=== PATIENT | female | born 1980 | race Caucasian/White ===

== ENCOUNTER 2020-08-06 09:10 | Outpatient (REF) | payer OTHER, SELFPAY ==
--- NOTE | 2020-08-06 09:15 | XR_ITS ---
EXAMINATION: XR SHOULDER, LEFT CLINICAL INFORMATION: Pain COMPARISON: None TECHNIQUE: AP external rotation, Grashey, scapular Y, and axillary views of the left shoulder. FINDINGS: Bone alignment is normal. No fracture or dislocation is seen. The joint spaces are normal. There is a small soft tissue calcification seen posteriorly on the axillary view. This is not identified on other views. IMPRESSION: No fracture or dislocation.
== END 2020-08-06 09:11 | disposition home or self-care (01) ==
LOC: HO.HMGCX 09:10
PROVIDERS: PCP Internal Medicine; Visit Provider Internal Medicine
DX: M25.512 Pain in left shoulder (principal)
CPT/HCPCS: 73030

== ENCOUNTER 2020-11-12 10:50 | Outpatient (REF) | payer OTHER, SELFPAY | END 2020-11-12 10:51 | disposition home or self-care (01) | LOC: HO.LAB 10:50 | PROVIDERS: Visit Provider Nurse Practitioner Family | DX: H65.192 Other acute nonsuppurative otitis media, left ear (principal); Z20.822 Contact with and (suspected) exposure to COVID-19 | CPT/HCPCS: 36415; U0003 ==

== ENCOUNTER 2020-11-12 11:01 | Outpatient (REF) | payer OTHER, SELFPAY ==
--- NOTE | 2020-11-12 11:09 | XR_ITS ---
EXAMINATION: LEFT SHOULDER AND LEFT FOOT X-RAYS CLINICAL INFORMATION: Pain COMPARISON: None TECHNIQUE: 3 views of the left shoulder and 3 views of the left foot FINDINGS: Left shoulder: Bone alignment is normal. No fracture or dislocation is seen. The joint spaces are normal. Soft tissues are normal. Left foot: Bone alignment is normal. No fracture or dislocation is seen. The joint spaces are normal. There are small calcaneal spurs. XR/XR foot LT min 3V IMPRESSION: Left shoulder: Unremarkable exam Left foot: Calcaneal spurs.
--- NOTE | 2020-11-12 11:09 | XR_ITS ---
EXAMINATION: LEFT SHOULDER AND LEFT FOOT X-RAYS CLINICAL INFORMATION: Pain COMPARISON: None TECHNIQUE: 3 views of the left shoulder and 3 views of the left foot FINDINGS: Left shoulder: Bone alignment is normal. No fracture or dislocation is seen. The joint spaces are normal. Soft tissues are normal. Left foot: Bone alignment is normal. No fracture or dislocation is seen. The joint spaces are normal. There are small calcaneal spurs. XR/XR shoulder LT min 2V IMPRESSION: Left shoulder: Unremarkable exam Left foot: Calcaneal spurs.
== END 2020-11-12 11:02 | disposition home or self-care (01) ==
LOC: HO.HMGCX 11:01
PROVIDERS: PCP Internal Medicine; Visit Provider Nurse Practitioner Family
DX: M79.672 Pain in left foot (principal); M25.512 Pain in left shoulder; G89.29 Other chronic pain
CPT/HCPCS: 73030; 73630

== ENCOUNTER 2020-11-21 10:13 | Outpatient (REF) | payer OTHER, SELFPAY ==
[2020-11-21 11:12] LABS: MANUAL DIFF FLAG NO
[2020-11-21 11:24] LABS: Basophils Percent Auto 0.4 % (0-2); Eosinophils Absolute Auto 0.1 X10*3/uL (0.0-0.4); Eosinophils Percent Auto 1.6 % (0-4); Hematocrit 43.2 % (37-47); Hemoglobin 14.4 g/dl (12.0-16.0); Imm Gran Abs Auto 0.05 X10*3/uL (0.00-0.03); Imm Gran Pct Auto 0.7 % (0.0-0.4); Lymphocytes Absolute Auto 1.9 X10*3/uL (1.2-4.9); Lymphocytes Percent Auto 25.7 % (20-40); Mean Corpuscular HGB Conc 33.3 g/dl (31.0-35.0); Mean Corpuscular Hemoglobin 28.3 pg (27.0-33.0); Mean Platelet Volume 11.5 fL (9.4-12.3); Monocytes Absolute Auto 0.5 X10*3/uL (0.1-1.2); Monocytes Percent Auto 6.9 % (2-11); Neutrophils Absolute Auto 4.7 X10*3/uL (2.0-8.3); Neutrophils Percent Auto 64.7 % (45-73); Platelet Count 199 X10*3/uL (160-400); Red Blood Count 5.08 X10*6/uL (4.20-5.50); Red Cell Distribution Width 12.6 % (11.0-16.0); White Blood Count 7.3 X10*3/uL (4.8-10.8)
[2020-11-21 11:52] LABS: Alanine Aminotransferase 10 U/L (0-31); Albumin Level 4.5 g/dL (3.5-5.0); Alkaline Phosphatase 69 U/L (39-117); Anion Gap 11 (12-20); Aspartate Amino Transferase 11 U/L (5-31); Bilirubin Total 0.9 mg/dL (0.0-1.0); Blood Urea Nitrogen 10 mg/dL (9-16); Calcium 8.9 mg/dL (8.4-10.2); Carbon Dioxide 27 mmol/L (22-29); Chloride 104 mmol/L (96-108); Cholesterol 129 mg/dL; Estimated Glomerular Filt Rate > 60; Glucose Fasting 87 mg/dL (60-99); HDL Cholesterol 51 mg/dL; LDL Cholesterol Calculated 70 mg/dl; Potassium 4.3 mmol/L (3.3-5.1); Sodium 138 mmol/L (135-145); Total Protein 6.6 g/dL (6.5-8.0); Triglycerides 44 mg/dL
[2020-11-21 12:14] LABS: TSH reflex Free T4 0.71 uIU/mL (0.32-4.0); Vitamin D 25-OH Total 22.3 ng/mL (>30)
[2020-11-22 06:28] LABS: Thyroid Peroxidase Antibodies 493 IU/mL (<9)
== END 2020-11-21 10:14 | disposition home or self-care (01) ==
LOC: HO.HMGCLDS 10:13
PROVIDERS: PCP Internal Medicine; Visit Provider Internal Medicine
DX: Z00.01 Encounter for general adult medical examination with abnormal findings (principal); E66.9 Obesity, unspecified; F41.9 Anxiety disorder, unspecified; Z83.49 Family history of other endocrine, nutritional and metabolic diseases
CPT/HCPCS: 36415; 80053; 80061; 82306; 84443; 85025; 86376

== ENCOUNTER 2021-01-30 09:30 | Outpatient (REF) | payer OTHER, SELFPAY ==
[2021-01-30 15:22] LABS: CT PCR NOT DETECTED (Not Detect.); NG PCR NOT DETECTED (Not Detect.)
[2021-02-01 20:52] LABS: HPV mRNA E6/E7 rflx Not Detected (Not Detected)
== END 2021-01-30 09:31 | disposition home or self-care (01) ==
LOC: HO.LAB 09:30
PROVIDERS: PCP Internal Medicine; Visit Provider Advanced Practice Midwife
DX: Z01.419 Encounter for gynecological examination (general) (routine) without abnormal findings (principal); Z11.51 Encounter for screening for human papillomavirus (HPV); Z11.3 Encounter for screening for infections with a predominantly sexual mode of transmission; Z20.2 Contact with and (suspected) exposure to infections with a predominantly sexual mode of transmission; R23.2 Flushing; Z80.3 Family history of malignant neoplasm of breast
CPT/HCPCS: 87491; 87591; 87624; 88142

== ENCOUNTER 2021-02-01 08:45 | Outpatient (REF) | payer OTHER, SELFPAY ==
--- NOTE | ~2021-02-01 | MM_ITS ---
EXAMINATION: MM SCREENING DIGITAL BREAST TOMOSYNTHESIS, BILATERAL CLINICAL INFORMATION: Screening. Asymptomatic. The lifetime risk of breast cancer based on the Tyrer-Cuzick Model is 18%. COMPARISON: Outside mammography: 12/09/2019, 11/30/2018 ([facility]) TECHNIQUE: Digital breast tomosynthesis is performed in both the craniocaudal and mediolateral oblique views along with computer-aided detection (CAD). Synthesized 2D images are generated from the tomosynthesis. FINDINGS: The breasts are heterogeneously dense, which may obscure small masses (ACR BI-RADS breast composition Category c). Breast tissue composition borders on average fibroglandular. Parenchymal pattern is similar to the outside exams. There is no developing density or interval mass or architectural abnormality. Left breast shows no abnormal calcifications. There is probable punctate digital processing artifact mid lower right breast on MLO view is rather than calcifications. No correlate on CC view. Patient will be recalled for additional imaging to confirm. The axilla and skin contours are unremarkable. MM/MM tomosynthesis screening BI IMPRESSION: 1. Right: Calcifications versus punctate digital processing artifact mid lower right breast on MLO view. 2. Left: No mammographic evidence of malignancy. ASSESSMENT: BI-RADS 0: Incomplete - Need Additional Imaging Evaluation RECOMMENDATION: 2. Radiology department staff will contact the patient for additional imaging. This patient's information was entered into a reminder system with a target due date for their next mammogram.
== END 2021-02-01 08:46 | disposition home or self-care (01) ==
LOC: HO.MAMMO 08:45
PROVIDERS: PCP Internal Medicine; Visit Provider Internal Medicine
DX: Z12.31 Encounter for screening mammogram for malignant neoplasm of breast (principal); M75.42 Impingement syndrome of left shoulder
CPT/HCPCS: 77063; 77067; 99202

== ENCOUNTER 2021-02-22 09:12 | Outpatient (REF) | payer OTHER, SELFPAY ==
--- NOTE | ~2021-02-22 | US_ITS ---
EXAMINATION: US ABDOMEN LIMITED CLINICAL INFORMATION: Left upper quadrant abdominal swelling, mass, lump. COMPARISON: CT abdomen and pelvis 07/14/2018. TECHNIQUE: Real-time imaging of the left upper quadrant abdominal wall inferior rib cage using a linear transducer. FINDINGS: No hernia is seen. No solid or cystic mass or fluid collection is seen. US/US abdomen limited IMPRESSION: No left upper quadrant abdominal wall abnormality evident by ultrasound
== END 2021-02-22 09:13 | disposition home or self-care (01) ==
LOC: HO.HMGCX 09:12
PROVIDERS: PCP Internal Medicine; Visit Provider Internal Medicine
DX: R19.02 Left upper quadrant abdominal swelling, mass and lump (principal)
CPT/HCPCS: 76705

== ENCOUNTER 2021-02-25 11:11 | Outpatient (REF) | payer OTHER, SELFPAY ==
--- NOTE | ~2021-02-25 | MM_ITS ---
EXAMINATION: MM DIAGNOSTIC DIGITAL MAMMOGRAPHY, RIGHT CLINICAL INFORMATION: Calcifications versus digital processing artifact mid lower right breast on synthesized MLO screening view. COMPARISON: Mammography: 02/01/2021; outside mammography 12/09/2019, 11/30/2018 ([facility]). TECHNIQUE: Digital mammography is performed in the following views: Magnification ML FINDINGS: There are scattered areas of fibroglandular density (ACR BI-RADS breast composition Category b). There is a single punctate round calcification in the mid to lower breast, area of interest. There is a small round dermal calcification right areolar. There are no grouped calcifications or ductal distribution. Results are discussed with the patient at time of visit. MM/MM added views RT IMPRESSION: No grouped calcifications mid to lower right breast. ASSESSMENT: BI-RADS 2: Benign RECOMMENDATION: Routine annual mammography screening. This patient's information was entered into a reminder system with a target due date for their next mammogram.
== END 2021-02-25 11:12 | disposition home or self-care (01) ==
LOC: HO.MAMMO 11:11
PROVIDERS: Visit Provider Internal Medicine
DX: R92.1 Mammographic calcification found on diagnostic imaging of breast (principal)
CPT/HCPCS: 77065

== ENCOUNTER 2021-03-27 10:38 | Outpatient (REF) | payer OTHER, SELFPAY | END 2021-03-27 10:39 | disposition home or self-care (01) | LOC: HO.LAB 10:38 | PROVIDERS: Visit Provider Nurse Practitioner Family | DX: N39.0 Urinary tract infection, site not specified (principal) | CPT/HCPCS: 87086; 87088; 87186 ==

== ENCOUNTER 2021-05-20 13:30 | Outpatient (REF) | payer OTHER, SELFPAY ==
--- NOTE | ~2021-05-20 | XR_ITS ---
EXAMINATION: XR FOOT, RIGHT CLINICAL INFORMATION: Pain right. COMPARISON: None TECHNIQUE: AP, lateral, and oblique views of the right foot. FINDINGS: There is no acute or healing fracture, dislocation, destructive process. There is normal bony mineralization. No focal joint narrowing or erosive changes. There are small posterior and plantar calcaneal spurs. The retrocalcaneal recess is preserved. Subtalar joint is unremarkable. XR/XR foot RT min 3V IMPRESSION: 1. No visible fracture or arthropathy. 2. Small posterior and plantar calcaneal spurs.
[2021-05-27 13:15] LABS: Vitamin D 25-OH, D2 <4 ng/mL; Vitamin D 25-OH, D3 34 ng/mL; Vitamin D 25-OH, Total 34 ng/mL (30-100)
== END 2021-05-20 13:31 | disposition home or self-care (01) ==
LOC: HO.HMGCX 13:30
PROVIDERS: PCP Internal Medicine; Visit Provider Hospitalist
DX: M79.671 Pain in right foot (principal); R30.0 Dysuria; E55.9 Vitamin D deficiency, unspecified
CPT/HCPCS: 36415; 73630; 82306; 87086; 87088; 87186

== ENCOUNTER 2021-10-16 14:06 | Outpatient (REF) | payer OTHER, SELFPAY ==
[2021-10-17 03:21] LABS: CT PCR NOT DETECTED (Not Detect.); NG PCR NOT DETECTED (Not Detect.)
[2021-10-17 09:43] LABS: BV Int Neg Control Negative (Negative); BV Int Pos Control Positive (Positive)
== END 2021-10-16 14:07 | disposition home or self-care (01) ==
LOC: HO.LAB 14:06
PROVIDERS: PCP Internal Medicine; Visit Provider Advanced Practice Midwife
DX: Z01.411 Encounter for gynecological examination (general) (routine) with abnormal findings (principal); B37.3 Candidiasis of vulva and vagina; Z20.2 Contact with and (suspected) exposure to infections with a predominantly sexual mode of transmission
CPT/HCPCS: 87480; 87491; 87510; 87591; 87660; 99212

== ENCOUNTER 2021-10-22 10:44 | Outpatient (REF) | payer OTHER, SELFPAY ==
[2021-10-22 14:02] LABS: Appearance Urine CLOUDY; Color Urine STRAW; Glucose Urine UA NEG (NEG); Leukocyte Esterase Urine 3+ (NEG); Nitrite Urine NEG (NEG); Specific Gravity - Urine <= 1.005 (1.005-1.025); UACC Culture Trigger YES; Urine Blood NEG (NEG); Urine Ketones NEG (NEG); Urine Protein NEG (NEG-TRACE)
[2021-10-22 14:08] LABS: Bacteria Urine 2+ /LPF; Squamous Epithelial Cell Urine 2+ /LPF
== END 2021-10-22 10:45 | disposition home or self-care (01) ==
LOC: HO.HMGCLDS 10:44
PROVIDERS: PCP Internal Medicine; Visit Provider Advanced Practice Midwife
DX: N39.0 Urinary tract infection, site not specified (principal)
CPT/HCPCS: 81001; 81003; 87086; 87088; 87186

== ENCOUNTER 2021-12-30 09:00 | Outpatient (REF) | payer OTHER, SELFPAY ==
[2021-12-30 11:28] LABS: Appearance Urine CLEAR; Color Urine STRAW; Glucose Urine UA NEG (NEG); Leukocyte Esterase Urine NEG (NEG); Nitrite Urine NEG (NEG); UACC Culture Trigger NO; Urine Blood TRACE (NEG); Urine Ketones NEG (NEG); Urine Protein NEG (NEG-TRACE)
[2021-12-30 12:05] LABS: Bacteria Urine 1+ /LPF; Squamous Epithelial Cell Urine 3+ /LPF; WBC Urine 0-2 /HPF (0-4)
[2021-12-30 12:06] LABS: Anion Gap 10 (12-20); Blood Urea Nitrogen 9 mg/dL (9-16); Calcium 9.3 mg/dL (8.4-10.2); Carbon Dioxide 27 mmol/L (22-29); Chloride 105 mmol/L (96-108); Estimated Glomerular Filt Rate > 60; Glucose Random 77 mg/dL (60-115); Potassium 4.2 mmol/L (3.3-5.1); Sodium 138 mmol/L (135-145)
[2021-12-30 12:17] LABS: B Type Natriuretic Peptide 12 pg/mL (<100)
[2021-12-30 12:32] LABS: TSH reflex Free T4 1.06 uIU/mL (0.32-4.0)
[2021-12-30 12:40] LABS: Estimated Average Glucose 91 mg/dL; Hemoglobin A1c % 4.8 %
== END 2021-12-30 09:01 | disposition home or self-care (01) ==
LOC: HO.HMGCLDS 09:00
PROVIDERS: Physician Assistant; PCP Internal Medicine; Visit Provider Advanced Practice Midwife
DX: R63.5 Abnormal weight gain (principal); N39.0 Urinary tract infection, site not specified; R30.0 Dysuria; Z86.39 Personal history of other endocrine, nutritional and metabolic disease
CPT/HCPCS: 36415; 80048; 81001; 83036; 83880; 84443

== ENCOUNTER 2022-04-25 10:48 | Outpatient (REF) | payer OTHER, SELFPAY ==
[2022-04-25 12:00] LABS: MANUAL DIFF FLAG NO
[2022-04-25 12:06] LABS: Basophils Percent Auto 0.4 % (0-2); Eosinophils Absolute Auto 0.1 X10*3/uL (0.0-0.4); Eosinophils Percent Auto 1.4 % (0-4); Hemoglobin 14.4 g/dl (12.0-16.0); Imm Gran Pct Auto 1.3 % (0.0-0.4); Lymphocytes Absolute Auto 1.8 X10*3/uL (1.2-4.9); Lymphocytes Percent Auto 22.7 % (20-40); Mean Corpuscular HGB Conc 33.5 g/dl (31.0-35.0); Mean Corpuscular Hemoglobin 27.6 pg (27.0-33.0); Mean Corpuscular Volume 82.5 fL (80.0-98.0); Mean Platelet Volume 11.2 fL (9.4-12.3); Monocytes Absolute Auto 0.5 X10*3/uL (0.1-1.2); Monocytes Percent Auto 6.6 % (2-11); Neutrophils Absolute Auto 5.4 x10*3/uL (2.0-8.3); Neutrophils Percent Auto 67.6 % (45-73); Platelet Count 225 X10*3/uL (160-400); Red Blood Count 5.21 X10*6/uL (4.20-5.50); Red Cell Distribution Width 12.8 % (11.0-16.0)
[2022-04-25 12:07] LABS: Hematocrit 43.3 % (37.0-47.0); Hemoglobin 14.7 g/dl (12.0-16.0); Mean Corpuscular HGB Conc 33.9 g/dl (31.0-35.0); Mean Corpuscular Hemoglobin 28.2 pg (27.0-33.0); Mean Platelet Volume 11.2 fL (9.4-12.3); Platelet Count 228 X10*3/uL (160-400); Red Blood Count 5.22 X10*6/uL (4.20-5.50); Red Cell Distribution Width 12.7 % (11.0-16.0); White Blood Count 7.7 X10*3/uL (4.8-10.8)
[2022-04-25 12:14] LABS: Appearance Urine CLEAR; Color Urine STRAW; Glucose Urine UA NEG (NEG); Leukocyte Esterase Urine 1+ (NEG); Nitrite Urine NEG (NEG); Specific Gravity - Urine <= 1.005 (1.005-1.025); UACC Culture Trigger YES; Urine Blood NEG (NEG); Urine Ketones NEG (NEG); Urine Protein NEG (NEG-TRACE)
[2022-04-25 12:18] LABS: Alanine Aminotransferase 12 U/L (0-31); Anion Gap 10 (12-20); Aspartate Amino Transferase 12 U/L (5-31); Blood Urea Nitrogen 9 mg/dL (9-16); Carbon Dioxide 28 mmol/L (22-29); Chloride 104 mmol/L (96-108); Cholesterol 126 mg/dL; Estimated Glomerular Filt Rate > 60; Glucose Fasting 91 mg/dL (60-99); HDL Cholesterol 45 mg/dL; LDL Cholesterol Calculated 67 mg/dl; Potassium 4.4 mmol/L (3.3-5.1); Sodium 138 mmol/L (135-145); Triglycerides 73 mg/dL
[2022-04-25 12:41] LABS: Thyroid Stimulating Hormone 0.79 uIU/mL (0.32-4.0); Vitamin D 25-OH Total 28.3 ng/mL (>30)
[2022-04-25 12:56] LABS: Squamous Epithelial Cell Urine 1+ /LPF
[2022-04-25 12:58] LABS: Bacteria Urine TRACE /LPF; RBC Urine 0-2 /HPF (0)
[2022-04-30 15:12] LABS: Vitamin D 25-OH, D2 <4 ng/mL; Vitamin D 25-OH, D3 26 ng/mL; Vitamin D 25-OH, Total 26 ng/mL (30-100)
== END 2022-04-25 10:49 | disposition home or self-care (01) ==
LOC: HO.HMGCLDS 10:48
PROVIDERS: Absent Provider Internal Medicine; PCP Internal Medicine; Visit Provider Internal Medicine
DX: Z00.01 Encounter for general adult medical examination with abnormal findings (principal); E55.9 Vitamin D deficiency, unspecified; E06.3 Autoimmune thyroiditis
CPT/HCPCS: 36415; 80048; 80061; 81001; 81003; 82306; 84443; 84450; 84460; 85025; 85027; 87086; 87088

== ENCOUNTER 2022-06-27 11:04 | Outpatient (REF) | payer OTHER, SELFPAY ==
--- NOTE | ~2022-06-27 | MM_ITS ---
EXAMINATION: MM SCREENING DIGITAL BREAST TOMOSYNTHESIS, BILATERAL CLINICAL INFORMATION: Screening. Asymptomatic. The lifetime risk of breast cancer based on the Tyrer-Cuzick Model is 17%. COMPARISON: Mammography: 02/25/2021, 02/01/2021, 12/09/2019; outside mammography 11/30/2018 ([facility]). TECHNIQUE: Digital breast tomosynthesis is performed in both the craniocaudal and mediolateral oblique views along with computer-aided detection (CAD). Synthesized 2D images are generated from the tomosynthesis. FINDINGS: There are scattered areas of fibroglandular density (ACR BI-RADS breast composition Category b). There are no significant masses, abnormal calcifications, or other abnormalities. Parenchymal pattern is similar to prior studies. Breast tissue composition borders on heterogeneously dense. There is no developing density or architectural abnormality. The axilla and skin contours are unremarkable. No significant changes. MM/MM tomosynthesis screening BI IMPRESSION: No mammographic evidence of malignancy. ASSESSMENT: BI-RADS 1: Negative RECOMMENDATION: Routine annual mammography screening. This patient's information was entered into a reminder system with a target due date for their next mammogram.
== END 2022-06-27 11:05 | disposition home or self-care (01) ==
LOC: HO.MAMMO 11:04
PROVIDERS: PCP Internal Medicine; Visit Provider Internal Medicine
DX: Z12.31 Encounter for screening mammogram for malignant neoplasm of breast (principal)
CPT/HCPCS: 77063; 77067

== ENCOUNTER 2022-08-25 12:04 | Emergency (ER) | payer OTHER, SELFPAY ==
--- NOTE | ~2022-08-25 | CT_ITS ---
EXAMINATION: CT ABDOMEN AND PELVIS WITHOUT CONTRAST CLINICAL INFORMATION: Right-sided flank pain COMPARISON: None TECHNIQUE: Multidetector volumetric imaging was performed from the superior aspect of the liver through the pubic symphysis. Sagittal and coronal reformatted images were obtained on the technologist's workstation. This CT examination was performed using dose optimization techniques as appropriate, variously including the following: *Automated exposure control *Adjustment of mA and/or kV according to patient size (this includes techniques or standardized protocols for targeted exams where dose is matched to indication/reason for exam; i.e. extremities or head) *Use of iterative reconstruction technique DLP: 844 mGy-cm FINDINGS: LUNG BASES: The visualized lung bases are unremarkable. LIVER, GALLBLADDER, AND BILIARY TREE: Unenhanced liver grossly normal. No focal mass. No biliary dilatation. . Gallbladder is absent. PANCREAS: Unremarkable. SPLEEN: Unremarkable. ADRENAL GLANDS: Unremarkable. KIDNEYS AND URETERS: The kidneys are normal in size, shape, and attenuation. No hydronephrosis, hydroureter, or calculi seen. No perinephric stranding. BLADDER: Unremarkable. GASTROINTESTINAL TRACT: No bowel obstruction or right or left lower quadrant inflammatory change. Vermiform appendix not clearly seen but there is no inflammation in the right lower quadrant. ABDOMINAL WALL: No significant hernia is appreciated. LYMPH NODES: Normal. VASCULAR: Unremarkable. PELVIC VISCERA: Unremarkable. OSSEOUS STRUCTURES: Unremarkable. CT/CT abdomen pelvis wo IV con IMPRESSION: Unremarkable study.
[2022-08-25 12:31] VITALS: BP 128/84; PULSE 87; RESP 18; TEMP 36.5; O2SAT 98; BMI 35.4
--- NOTE | 2022-08-25 12:37 | ED.ABDPAIN ---
HPI - Abdominal Pain General Chief Complaint: Abdominal Pain <Luigi Daley MD - Last Filed: 08/25/22 12:37> Stated Complaint: r side abd pain back <Luigi Daley MD - Last Filed: 08/25/22 12:37> Time Seen by Provider: 08/25/22 18:45 <Luigi Daley MD - Last Filed: 08/25/22 12:37> Source: patient and family <ANTONIETA Collier - Last Filed: 08/25/22 19:44> Mode of arrival: ambulatory <ANTONIETA Collier - Last Filed: 08/25/22 19:44> Limitations: no limitations <ANTONIETA Collier Last Filed: 08/25/22 19:44> History of Present Illness HPI narrative: 42-year-old female with a past medical history of anxiety disorder, PTSD, gallstones and Toro's thyroiditis and PSHx of cholecystectomy presenting to the ER with complaints of mid to lower back pain right-sided that is radiating to her abdomen to the right lower quadrant since Thursday morning when she woke up. She reports that she went to the urgent care prior to arrival and they told her that she had blood in her urine and that they cannot rule out appendicitis therefore they sent her here for further evaluation treatment. She reports associated chills. She denies any measured fevers, headaches, nausea/vomiting, diarrhea constipation, black or bloody stools, dysuria, hematuria, recent travel or sick contacts, recent falls or trauma, recent heavy lifting, urinary bowel incontinence or retention or any other symptoms complaints or concerns at this time. <ANTONIETA Collier - Last Filed: 08/25/22 19:44> MD elicited complaint: other (back pain) <ANTONIETA Collier - Last Filed: 08/25/22 19:44> Pertinent past history: none <ANTONIETA Collier Last Filed: 08/25/22 19:44> Onset (ago): day(s) (2) <ANTONIETA Collier Last Filed: 08/25/22 19:44> Pain Consistency: constant <ANTONIETA Collier Last Filed: 08/25/22 19:44> Location: none (right mid back) <ANTONIETA Collier Last Filed: 08/25/22 19:44> Severity: mild <ANTONIETA Collier - Last Filed: 08/25/22 19:44> Quality: aching <ANTONIETA Collier - Last Filed: 08/25/22 19:44> Radiation: RLQ <ANTONIETA Collier - Last Filed: 08/25/22 19:44> Exacerbating factors: nothing <ANTONIETA Collier - Last Filed: 08/25/22 19:44> Relieving factors: nothing <ANTONIETA Collier - Last Filed: 08/25/22 19:44> Associated symptoms: chills <ANTONIETA Collier - Last Filed: 08/25/22 19:44> Related Data Home Medications: Home Medications Medication Instructions Recorded Confirmed aspirin 81 mg tablet,delayed 81 mg PO DAILY 11/21/20 10/16/21 release (Adult Low Dose Aspirin) Previous Rx's Medication Instructions Recorded lorazepam 0.5 mg tablet 0.5 mg PO DAILY PRN anxiety #10 07/25/21 tabs cyclobenzaprine 10 mg tablet 10 mg PO Q8H #14 tabs 08/25/22 naproxen 500 mg tablet 500 mg PO BID PRN pain #14 tabs 08/25/22 <Luigi Daley MD - Last Filed: 08/25/22 12:37> Allergies/Adverse Reactions: Allergies Allergy/AdvReac Type Severity Reaction Status Date / Time azithromycin [Azithromycin] Allergy Unknown RASH Verified 08/25/22 11:02 doxycycline [Doxycycline] Allergy Unknown RASH Verified 08/25/22 11:02 Iodinated Contrast Media Allergy Unknown HIVES Verified 08/25/22 11:02 [IV CONTRAST] sulfamethoxazole Allergy Unknown unknown Verified 08/25/22 11:02 Sulfamethoxazole Allergy Unknown rash Uncoded 08/25/22 11:02 <Luigi Daley MD - Last Filed: 08/25/22 12:37> Review of Systems Review of Systems Constitutional : + Chills, No trauma, No Weight loss, No Fever ENT/Mouth : No Hearing loss, No Ear Pain, No Nasal Congestion, No Sinus Pain, No Hoarseness, No sore throat, No Rhinorrhea, No Swallowing Difficulty Cardiovascular : No Chest Pain, No SOB Respiratory : No Cough, No Dyspnea Gastrointestinal : No Nausea, No Vomiting, No Diarrhea, + abdominal Pain, No Hematochezia, No Melena Genitourinary : No Dysuria, No Urinary Frequency, No Hematuria, No Urinary or Bowel Incontinence/retention Musculoskeletal : + Back pain, No neck pain, No joint stiffness, No joint swelling Skin : No Skin Lesions, No rash or signs of infection Neuro : No Weakness, No radiation, No Numbness, No Paresthesias, No headache, no loss of bowel or bladder incontinence, no saddle anesthesia, Focal weakness, No radiation Denies history of IV drug usage. <ANTONIETA Collier - Last Filed: 08/25/22 19:44> Yes all other systems are reviewed and are negative <ANTONIETA Collier - Last Filed: 08/25/22 19:44> [facility] Past Medical History Attestation statement: The following information was validated with the patient. <ANTONIETA Collier - Last Filed: 08/25/22 19:44> Source: old records reviewed, obtained from family and nursing notes reviewed <ANTONIETA Collier - Last Filed: 08/25/22 19:44> Medical History: Medical History Abdominal wall mass of left upper quadrant Anxiety disorder Breast asymmetry Cholelithiasis COVID-19 vaccine administered Family history of thyroid disorder Toro's thyroiditis Hx of abnormal cervical Pap smear Influenza vaccination declined PTSD (post-traumatic stress disorder) <Luigi Daley MD - Last Filed: 08/25/22 12:37> Surgical History: Surgical History History of laparoscopic cholecystectomy History of loop electrical excision procedure (LEEP) History of tonsillectomy <Luigi Daley MD - Last Filed: 08/25/22 12:37> Family History Family History: Family History Father Diabetes mellitus HTN (hypertension) CAD (coronary artery disease) CVD (cardiovascular disease) Asthma Myocardial infarction Mother Prediabetes Goiter Stroke Brother No problems noted. Daughter No problems noted. Daughter Mental health disorder Son No problems noted. Son No problems noted. Son No problems noted. Son No problems noted. Paternal Grandmother Breast cancer Ovarian cancer Maternal Grandmother Breast cancer Family/Other Colon cancer <Luigi Daley MD - Last Filed: 08/25/22 12:37> Social History Social History: Social History Housing: House Alcohol intake: never Patient Tobacco Use Status: Never used Tobacco e-Cigarette/Vaping Use: Never Used Advance Directives: No Advance Directives Information Provided: No service: No Current occupational status: employed Gender identity: Female Cognitive needs: No Hearing needs: No Vision needs: No <Luigi Daley MD - Last Filed: 08/25/22 12:37> Physical Exam ED Vital Signs: Vital Signs - 24 hr 08/25/22 12:31 Temperature 97.7 F Pulse Rate 87 Respiratory Rate 18 Blood Pressure 128/84 Pulse Oximetry 98 Oxygen Delivery Method Room Air BMI result Body Mass Index 35.4 <Luigi Daley MD - Last Filed: 08/25/22 12:37> Vital Signs - 24 hr 08/25/22 12:31 Temperature 97.7 F Pulse Rate 87 Respiratory Rate 18 Blood Pressure 128/84 Pulse Oximetry 98 Oxygen Delivery Method Room Air BMI result Body Mass Index 35.4 Vital signs have been reviewed and all within normal limits <ANTONIETA Collier - Last Filed: 08/25/22 19:44> Appearance: Alert. Oriented X3. No acute distress. Head: Normal external exam. Normocephalic. Eyes: PERRLA. EOMI. Conjunctiva and sclera normal. Eyelids normal. ENT: Pharynx normal. Uvula midline. Moist mucous membranes. No trismus noted. No drooling noted. No muffled voice noted. Neck: Normal inspection. Neck supple. FROM. No adenopathy. No meningeal signs. CVS: Normal heart rate and rhythm. Heart sound normal. No murmurs noted. Pulses normal throughout. Respiratory: No respiratory distress. Painless inspiration. Breath sounds normal. No wheezes/rales/rhonchi noted. Chest nontender. No accessory muscle usage noted or decreased air movement noted. Abdomen: Soft and mild TTP to RLQ and LUQ. Nondistended. No guarding. No rigidity. Bowel sounds normal in all 4 quadrants. No distention noted. No organomegaly noted. No visible injury noted. No rebound tenderness. Negative Rovsing sign. Negative obturator's sign. Negative psoas sign. Negative Roa sign. Back: + Right CVA tenderness. No Left CVAT noted. Full range of motion noted. No obvious deformities, or edema. Mild para-spinal muscular tenderness from lumbar region to coccyx. Full ROM in back and lower extremities. 5/5 strength hip extension/flexion, abduction, adduction. Mild Lumbar pain with hip flexion against resistance. Straight leg raise test negative on right; Straight leg raise test negative on left; Reflexes normal ankle and knee bilaterally; EHL motor strength normal bilaterally. No rashes/lesion/induration/fluctuance or signs infection noted. Skin: Skin warm and dry. Normal skin color. Normal skin turgor. No rashes/lesions/lacerations noted. Extremities: Extremities exhibit normal range of motion. Extremities nontender. Neuro: Oriented X 3. No motor deficit. No sensory deficit. Reflexes normal. Normal steady gait. CN's II-XII intact bilaterally? <ANTONIETA Collier - Last Filed: 08/25/22 19:44> Course Reevaluation(s) Reevaluation #1: patient with flank pain and hematuria seen at the urgent care <Luigi Daley MD - Last Filed: 08/25/22 12:37> Time: 12:37 <Luigi Daley MD - Last Filed: 08/25/22 12:37> Reevaluation #2: 42-year-old female with a past medical history of anxiety disorder, PTSD, gallstones and Toro's thyroiditis and PSHx of cholecystectomy presenting to the ER with complaints of mid to lower back pain right-sided that is radiating to her abdomen to the right lower quadrant since Thursday morning when she woke up. She reports that she went to the urgent care prior to arrival and they told her that she had blood in her urine and that they cannot rule out appendicitis therefore they sent her here for further evaluation treatment. She reports associated chills. - Labs were obtained while the patient was in the waiting room in patient with white blood cell count 4000. BUN 8. ALT 32. Otherwise all other labs are within normal limits. She had a urine at the urgent care which was within normal limits no acute processes noted. Serum quant negative for . - CT scan negative for any acute processes although they were unable to visualize the appendix although patient does not have any inflammation around the appendix. She does not have an elevated white blood cell count. Patient does have tenderness palpation to the right lower quadrant therefore explained to her this could be early appendicitis and that she would have to return in 24-48 hours if symptoms worsen or new symptoms arise or persist. I did at inflammatory markers as well. - therefore patient most likely muscular skeletal pain. Will treat with symptomatic treatment and DC home with instructions return if any new or worsening symptoms to follow up with primary care provider. Patient understands agrees with this plan. <ANTONIETA Collier - Last Filed: 08/25/22 19:44> Time: 19:02 <ANTONIETA Collier - Last Filed: 08/25/22 19:44> Medications Administered Discontinued Medications Generic Name Dose Route Start Last Admin Trade Name Freq PRN Reason Stop Dose Admin Cyclobenzaprine HCl 10 mg 08/25/22 18:52 08/25/22 19:42 Cyclobenzaprine Hcl 10 Mg Tablet PO 08/25/22 18:53 Not Given ONCE ONE Naproxen 500 mg 08/25/22 18:52 08/25/22 19:42 Naproxen 500 Mg Tablet PO 08/25/22 18:53 Not Given ONCE ONE <Luigi Daley MD - Last Filed: 08/25/22 12:37> Medications Administered Discontinued Medications Generic Name Dose Route Start Last Admin Trade Name Freq PRN Reason Stop Dose Admin Cyclobenzaprine HCl 10 mg 08/25/22 18:52 08/25/22 19:42 Cyclobenzaprine Hcl 10 Mg Tablet PO 08/25/22 18:53 Not Given ONCE ONE Naproxen 500 mg 08/25/22 18:52 08/25/22 19:42 Naproxen 500 Mg Tablet PO 08/25/22 18:53 Not Given ONCE ONE <ANTONIETA Collier - Last Filed: 08/25/22 19:44> MDM - Abdominal Pain Medical Records Attestation: I reviewed the patient's medical records. <ANTONIETA Collier - Last Filed: 08/25/22 19:44> Lab Data Attestation: I reviewed the patient's lab results. <ANTONIETA Collier - Last Filed: 08/25/22 19:44> Result diagrams: : 08/25/22 12:46 08/25/22 12:46 <Luigi Daley MD - Last Filed: 08/25/22 12:37> Labs: Lab Results 08/25/22 08/25/22 Range/Units 12:46 12:46 WBC 4.7 L (4.8-10.8) X10*3/uL RBC 5.15 (4.20-5.50) X10*6/uL Hgb 14.7 (12.0-16.0) g/dl Hct 43.0 (37.0-47.0) % MCV 83.5 (80.0-98.0) fL MCH 28.5 (27.0-33.0) pg MCHC 34.2 (31.0-35.0) g/dl RDW 13.2 (11.0-16.0) % Plt Count 176 (160-400) X10*3/uL MPV 10.9 (9.4-12.3) fL Immature Gran % (Auto) 0.9 H (0.0-0.4) % Neut % (Auto) 64.6 (45-73) % Lymph % (Auto) 25.1 (20-40) % [place] % (Auto) 8.4 (2-11) % Eos % (Auto) 0.4 (0-4) % Baso % (Auto) 0.6 (0-2) % Lymph # (Auto) 1.2 (1.2-4.9) X10*3/uL [place] # (Auto) 0.4 (0.1-1.2) X10*3/uL Eos # (Auto) 0.0 (0.0-0.4) X10*3/uL Baso # (Auto) 0.0 (0.0-0.2) X10*3/uL Abs Immat Gran (auto) 0.04 H (0.00-0.03) X10*3/uL Absolute Neuts (auto) 3.0 (2.0-8.3) x10*3/uL Absolute Nucleated RBC 0.000 (0.0-0.012) X10*3/uL Nucleated RBC % (auto) 0.0 (0.0-0.2) /100WBC Sodium 140 (135-145) mmol/L Potassium 4.3 (3.3-5.1) mmol/L Chloride 106 (96-108) mmol/L Carbon Dioxide 24 (22-29) mmol/L Anion Gap 14 (12-20) BUN 8 L (9-16) mg/dL Creatinine 0.78 (0.5-1.4) mg/dL Estim Creat Clear Calc 116.8 Estimated GFR > 60 Random Glucose 94 (60-115) mg/dL Calcium 9.1 (8.4-10.2) mg/dL Total Bilirubin 0.8 (0.0-1.0) mg/dL AST 27 D (5-31) U/L ALT 32 H (0-31) U/L Alkaline Phosphatase 90 D (39-117) U/L C-Reactive Protein 0.82 H (< or = 0.50) mg/dL Total Protein 7.0 (6.5-8.0) g/dL Albumin 4.5 (3.5-5.0) g/dL Lipase 13 (8-78) U/L Beta HCG, Quant < 2 mIU/mL <Luigi Daley MD - Last Filed: 08/25/22 12:37> Lab Results 08/25/22 08/25/22 Range/Units 12:46 12:46 WBC 4.7 L (4.8-10.8) X10*3/uL RBC 5.15 (4.20-5.50) X10*6/uL Hgb 14.7 (12.0-16.0) g/dl Hct 43.0 (37.0-47.0) % MCV 83.5 (80.0-98.0) fL MCH 28.5 (27.0-33.0) pg MCHC 34.2 (31.0-35.0) g/dl RDW 13.2 (11.0-16.0) % Plt Count 176 (160-400) X10*3/uL MPV 10.9 (9.4-12.3) fL Immature Gran % (Auto) 0.9 H (0.0-0.4) % Neut % (Auto) 64.6 (45-73) % Lymph % (Auto) 25.1 (20-40) % [place] % (Auto) 8.4 (2-11) % Eos % (Auto) 0.4 (0-4) % Baso % (Auto) 0.6 (0-2) % Lymph # (Auto) 1.2 (1.2-4.9) X10*3/uL [place] # (Auto) 0.4 (0.1-1.2) X10*3/uL Eos # (Auto) 0.0 (0.0-0.4) X10*3/uL Baso # (Auto) 0.0 (0.0-0.2) X10*3/uL Abs Immat Gran (auto) 0.04 H (0.00-0.03) X10*3/uL Absolute Neuts (auto) 3.0 (2.0-8.3) x10*3/uL Absolute Nucleated RBC 0.000 (0.0-0.012) X10*3/uL Nucleated RBC % (auto) 0.0 (0.0-0.2) /100WBC Sodium 140 (135-145) mmol/L Potassium 4.3 (3.3-5.1) mmol/L Chloride 106 (96-108) mmol/L Carbon Dioxide 24 (22-29) mmol/L Anion Gap 14 (12-20) BUN 8 L (9-16) mg/dL Creatinine 0.78 (0.5-1.4) mg/dL Estim Creat Clear Calc 116.8 Estimated GFR > 60 Random Glucose 94 (60-115) mg/dL Calcium 9.1 (8.4-10.2) mg/dL Total Bilirubin 0.8 (0.0-1.0) mg/dL AST 27 D (5-31) U/L ALT 32 H (0-31) U/L Alkaline Phosphatase 90 D (39-117) U/L C-Reactive Protein 0.82 H (< or = 0.50) mg/dL Total Protein 7.0 (6.5-8.0) g/dL Albumin 4.5 (3.5-5.0) g/dL Lipase 13 (8-78) U/L Beta HCG, Quant < 2 mIU/mL <ANTONIETA Collier - Last Filed: 08/25/22 19:44> Imaging Data CT scan abdomen pelvis without IV contrast: Attestation: I personally reviewed and interpreted this imaging study as follows: <ANTONIETA Collier - Last Filed: 08/25/22 19:44> Radiologist's impression: FINDINGS: LUNG BASES: The visualized lung bases are unremarkable.? LIVER, GALLBLADDER, AND BILIARY TREE: Unenhanced liver grossly normal. No focal mass. No biliary dilatation. . Gallbladder is absent.? PANCREAS: Unremarkable.? SPLEEN: Unremarkable.? ADRENAL GLANDS: Unremarkable.? KIDNEYS AND URETERS: The kidneys are normal in size, shape, and attenuation. No hydronephrosis, hydroureter, or calculi seen. No perinephric stranding. ? BLADDER: Unremarkable.? GASTROINTESTINAL TRACT: No bowel obstruction or right or left lower quadrant inflammatory change. Vermiform appendix not clearly seen but there is no inflammation in the right lower quadrant.? ABDOMINAL WALL: No significant hernia is appreciated.? LYMPH NODES: Normal. VASCULAR: Unremarkable. PELVIC VISCERA: Unremarkable.? OSSEOUS STRUCTURES: Unremarkable.? CT/CT abdomen pelvis wo IV con IMPRESSION: Unremarkable study. <ANTONIETA Collier - Last Filed: 08/25/22 19:44> Discharge Plan Discharge Clinical Impression: Muscle strain <Luigi Daley MD - Last Filed: 08/25/22 12:37> Patient Disposition: Home, Self-Care <Luigi Daley MD - Last Filed: 08/25/22 12:37> Instructions: Muscle Strain (ED) <Luigi Daley MD - Last Filed: 08/25/22 12:37> Additional Instructions: Your blood work today was within normal limits. Your CT scan was also within normal limits they were unable to visualize her appendix although you did not have any inflammation around the appendix. If your symptoms persist or worsen or you develop any fevers, nausea/vomiting or any new or worsening symptoms and you would have to return immediately. Although at this time your pain is most likely related to muscular skeletal. <Luigi Daley MD - Last Filed: 08/25/22 12:37> Prescriptions: New naproxen 500 mg tablet 500 mg PO BID PRN (Reason: pain) Qty: 14 0RF cyclobenzaprine 10 mg tablet 10 mg PO Q8H Qty: 14 0RF No Action aspirin [Adult Low Dose Aspirin] 81 mg tablet,delayed release (DR/EC) 81 mg PO DAILY lorazepam 0.5 mg tablet 0.5 mg PO DAILY PRN (Reason: anxiety) Qty: 10 0RF <Luigi Daley MD - Last Filed: 08/25/22 12:37> Referrals: Jamee Frederick MD [Primary Care Provider] - 2 days <Luigi Daley MD - Last Filed: 08/25/22 12:37>
[2022-08-25 12:54] LABS: MANUAL DIFF FLAG NO
[2022-08-25 12:58] LABS: Basophils Percent Auto 0.6 % (0-2); Eosinophils Percent Auto 0.4 % (0-4); Hemoglobin 14.7 g/dl (12.0-16.0); Imm Gran Abs Auto 0.04 X10*3/uL (0.00-0.03); Imm Gran Pct Auto 0.9 % (0.0-0.4); Lymphocytes Absolute Auto 1.2 X10*3/uL (1.2-4.9); Lymphocytes Percent Auto 25.1 % (20-40); Mean Corpuscular HGB Conc 34.2 g/dl (31.0-35.0); Mean Corpuscular Hemoglobin 28.5 pg (27.0-33.0); Mean Corpuscular Volume 83.5 fL (80.0-98.0); Mean Platelet Volume 10.9 fL (9.4-12.3); Monocytes Absolute Auto 0.4 X10*3/uL (0.1-1.2); Monocytes Percent Auto 8.4 % (2-11); Neutrophils Percent Auto 64.6 % (45-73); Platelet Count 176 X10*3/uL (160-400); Red Blood Count 5.15 X10*6/uL (4.20-5.50); Red Cell Distribution Width 13.2 % (11.0-16.0); White Blood Count 4.7 X10*3/uL (4.8-10.8)
[2022-08-25 13:11] LABS: Alanine Aminotransferase 32 U/L (0-31); Albumin Level 4.5 g/dL (3.5-5.0); Alkaline Phosphatase 90 U/L (39-117); Anion Gap 14 (12-20); Aspartate Amino Transferase 27 U/L (5-31); Bilirubin Total 0.8 mg/dL (0.0-1.0); Blood Urea Nitrogen 8 mg/dL (9-16); Calcium 9.1 mg/dL (8.4-10.2); Carbon Dioxide 24 mmol/L (22-29); Chloride 106 mmol/L (96-108); Creatinine Clr Calc Pharmacy 116.8; Estimated Glomerular Filt Rate > 60; Glucose Random 94 mg/dL (60-115); Potassium 4.3 mmol/L (3.3-5.1); Sodium 140 mmol/L (135-145)
[2022-08-25 13:52] LABS: HCG Quantitative < 2 mIU/mL
--- NOTE | 2022-08-25 18:53 | ED.BACK ---
HPI - Back Pain/Injury General Chief Complaint: Abdominal Pain Stated Complaint: r side abd pain back Time Seen by Provider: 08/25/22 18:45 Source: patient and family Mode of arrival: ambulatory Limitations: no limitations History of Present Illness HPI Narrative: 42-year-old female with a past medical history of anxiety disorder, PTSD, gallstones and Toro's thyroiditis presenting to the ER with complaints of mid to lower back pain right-sided that is radiating to her abdomen to the right lower quadrant since Thursday morning when she woke up. She reports that she went to the urgent care prior to arrival and they told her that she had blood in her urine and that they cannot rule out appendicitis therefore they sent her here for further evaluation treatment. She reports associated chills. She denies any measured fevers, headaches, nausea/vomiting, diarrhea constipation, black or bloody stools, dysuria, hematuria, recent travel or sick contacts, recent falls or trauma, recent heavy lifting, urinary bowel incontinence or retention or any other symptoms complaints or concerns at this time. Related Data Home Medications Medication Instructions Recorded Confirmed aspirin 81 mg tablet,delayed 81 mg PO DAILY 11/21/20 10/16/21 release (Adult Low Dose Aspirin) Previous Rx's Medication Instructions Recorded lorazepam 0.5 mg tablet 0.5 mg PO DAILY PRN anxiety #10 07/25/21 tabs Allergies Allergy/AdvReac Type Severity Reaction Status Date / Time azithromycin [Azithromycin] Allergy Unknown RASH Verified 08/25/22 11:02 doxycycline [Doxycycline] Allergy Unknown RASH Verified 08/25/22 11:02 Iodinated Contrast Media Allergy Unknown HIVES Verified 08/25/22 11:02 [IV CONTRAST] sulfamethoxazole Allergy Unknown unknown Verified 08/25/22 11:02 Sulfamethoxazole Allergy Unknown rash Uncoded 08/25/22 11:02 [facility] Past Medical History Medical History (Updated 08/25/22 @ 18:54 by ANTONIETA Collier) Abdominal wall mass of left upper quadrant Anxiety disorder Breast asymmetry Cholelithiasis COVID-19 vaccine administered Family history of thyroid disorder Toro's thyroiditis Hx of abnormal cervical Pap smear Influenza vaccination declined PTSD (post-traumatic stress disorder) Surgical History History of laparoscopic cholecystectomy History of loop electrical excision procedure (LEEP) History of tonsillectomy Family History Family History Father Diabetes mellitus HTN (hypertension) CAD (coronary artery disease) CVD (cardiovascular disease) Asthma Myocardial infarction Mother Prediabetes Goiter Stroke Brother No problems noted. Daughter No problems noted. Daughter Mental health disorder Son No problems noted. Son No problems noted. Son No problems noted. Son No problems noted. Paternal Grandmother Breast cancer Ovarian cancer Maternal Grandmother Breast cancer Family/Other Colon cancer Social History Social History Housing: House Alcohol intake: never Patient Tobacco Use Status: Never used Tobacco e-Cigarette/Vaping Use: Never Used Advance Directives: No Advance Directives Information Provided: No service: No Current occupational status: employed Gender identity: Female Cognitive needs: No Hearing needs: No Vision needs: No Physical Exam Vital Signs: Vital Signs: Last Vital Signs Temp 97.7 F 08/25/22 12:31 Pulse 87 08/25/22 12:31 Resp 18 08/25/22 12:31 BP 128/84 08/25/22 12:31 Pulse Ox 98 08/25/22 12:31 O2 Del Method 08/25/22 12:31 BMI result Body Mass Index 35.4 MDM - Back Pain/Injury Lab Data Result diagrams: 08/25/22 12:46 08/25/22 12:46 Labs: Lab Results 08/25/22 08/25/22 Range/Units 12:46 12:46 WBC 4.7 L (4.8-10.8) X10*3/uL RBC 5.15 (4.20-5.50) X10*6/uL Hgb 14.7 (12.0-16.0) g/dl Hct 43.0 (37.0-47.0) % MCV 83.5 (80.0-98.0) fL MCH 28.5 (27.0-33.0) pg MCHC 34.2 (31.0-35.0) g/dl RDW 13.2 (11.0-16.0) % Plt Count 176 (160-400) X10*3/uL MPV 10.9 (9.4-12.3) fL Immature Gran % (Auto) 0.9 H (0.0-0.4) % Neut % (Auto) 64.6 (45-73) % Lymph % (Auto) 25.1 (20-40) % [place] % (Auto) 8.4 (2-11) % Eos % (Auto) 0.4 (0-4) % Baso % (Auto) 0.6 (0-2) % Lymph # (Auto) 1.2 (1.2-4.9) X10*3/uL [place] # (Auto) 0.4 (0.1-1.2) X10*3/uL Eos # (Auto) 0.0 (0.0-0.4) X10*3/uL Baso # (Auto) 0.0 (0.0-0.2) X10*3/uL Abs Immat Gran (auto) 0.04 H (0.00-0.03) X10*3/uL Absolute Neuts (auto) 3.0 (2.0-8.3) x10*3/uL Absolute Nucleated RBC 0.000 (0.0-0.012) X10*3/uL Nucleated RBC % (auto) 0.0 (0.0-0.2) /100WBC Sodium 140 (135-145) mmol/L Potassium 4.3 (3.3-5.1) mmol/L Chloride 106 (96-108) mmol/L Carbon Dioxide 24 (22-29) mmol/L Anion Gap 14 (12-20) BUN 8 L (9-16) mg/dL Creatinine 0.78 (0.5-1.4) mg/dL Estim Creat Clear Calc 116.8 Estimated GFR > 60 Random Glucose 94 (60-115) mg/dL Calcium 9.1 (8.4-10.2) mg/dL Total Bilirubin 0.8 (0.0-1.0) mg/dL AST 27 D (5-31) U/L ALT 32 H (0-31) U/L Alkaline Phosphatase 90 D (39-117) U/L Total Protein 7.0 (6.5-8.0) g/dL Albumin 4.5 (3.5-5.0) g/dL Beta HCG, Quant < 2 mIU/mL Discharge Plan Discharge Prescriptions: No Action aspirin [Adult Low Dose Aspirin] 81 mg tablet,delayed release (DR/EC) 81 mg PO DAILY lorazepam 0.5 mg tablet 0.5 mg PO DAILY PRN (Reason: anxiety) Qty: 10 0RF
--- OUTSIDE RECORDS SUMMARY | 2022-08-25 18:58 | XMS_ITS | Encounter Summary ---
:1980 Author Organization [facility] Address [address] [place] [id number] Selected Encounter This section includes the information on record at [place] for the Encounter. Date/Time Encounter Type Encounter Reason Provider Source Description Feb 10, 2022 HC PRO PHONE TELEPHONE/ANCILLA ICD-10-CM Z71.0 Carlton COE [facility] 09:38 AM CALL 5-10 MIN RY Prsn encntr hlth E serv to consult on behalf of another person with Provider Comments: Person Encountering Health Services to Consult on Behalf of another Person IHE Encounter Template Text not used by [place] Assessments - Encounter Diagnoses This section includes the primary and secondary diagnoses documented for the Encounter. Date/Time Primary/Secondary Diagnosis Name Provider Source Diagnosis Feb 10, 2022 PRIMARY Prsn encntr KAIN COE [facility] N 09:38 AM hlth serv to [facility] consult on behalf of another person Encounter Notes: All associated encounter notes This section contains the clinical notes associated to the Encounter. Date/Time Encounter Note(s) Provider Source Feb 10, 2022 09:38 AM CAREGIVER CERTIFICATE: KAIN COE [facility] LOCAL TITLE: CSP DENIAL NOTE [place] [facility] STANDARD TITLE: CAREGIVER CERTIFICATE DATE OF NOTE: FEB 10, 2022@09:38 ENTRY DATE: FEB 10, 2022@09:38:54 AUTHOR: KAIN COE EXP COSIGNER: URGENCY: STATUS: COMPLETED Caregiver Support Program Denial Note Denial date: 02/07/22 Denied from the Program of Comprehensive Assista nce for Family Caregivers. The denied person is the Primary Family Caregive r applicant. Name of : Meghan Romero The reason for denial is the [place] or food services manager does not require personal care services for a minimum of 6 contin uous months based on an inability to perform an ADL and/or a need for albarran pervision, protection or instruction. Date of verbal notification of determination: 02/10/22 Date determination letter was mailed: 02/10/22 The following information was provided: Program of General Caregiver Support Services Appeal and Review Options Home Teaching Grades 7 And 8 Teacher contacted caregiver at [phone]. Writ er reviewed the above mentioned. Caregiver did not have any questions and or conc erns regarding the above mentioned. Home Teaching Grades 7 And 8 Teacher mailed caregiver the below mentioned geneva er SENT VIA CERTIFIED MAIL RETURN RECEIPT REQUESTED SENT REGULAR MAIL AUSTIN MERIDA [address] [place] [id number] February 10, 2022 Dear Ms. Merida: Thank you for your interest in the Program of Co mprehensive Assistance for Family Caregivers (PCAFC). We are unable to appr ove your application at this time. During our conversation on this day, 02/10/2022, we discussed that you do not meet eligibility criteria for PCAFC because: ? The [place] or meteorology faculty member is not in need o f personal care services for a minimum of six continuous months based on an i nability to perform an activity of daily living (ADL), or a need for albarran pervision, protection or instruction. For more information on this determination, we e ncourage your significant other, Meghan Romero, to review their ealthcare record. If you disagree with a PCAFC decision If you disagree with this decision, you have the right to request [facility] (A) review, or appeal to the Board of Veterans' Appeals (Board). Enclosed is information about r margow and appeal options available to you, including your right to appeal to the Board. PCAFC is just one way [place] supports caregivers You may select to participate in the Program of General Caregiver Support Services (PGCSS). Services in this program inclu de: ? Caregiver skills training and education, both online and in-person ? Coaching, supportive counseling and support gr oups ? Peer Support Mentoring ? Information on and referrals to VA and [facility] resources There is no application needed for PGCSS. If you have any questions about this letter or o ther matters, please contact me directly at [phone] or visit the [facility] er Support Program's website at www.care[place]iver.[place].gov. Sincerely, KAIN QUINN, [facility] Caregiver Safety Investigator/Cause Analyst [facility] Enclosure(s): [place] Form 10-536, Your Rights To See k Further Review of PCAFC Decisions /es/ KAIN QUINN CAREGIVER SUPPORT PROTOZOOLOGIST Signed: 02/10/2022 10:01
--- OUTSIDE RECORDS SUMMARY | 2022-08-25 18:58 | XMS_ITS | Continuity of Care Document ---
:1980 Author Organization [facility] Care Team Providers Name Role Phone [facility] Unavailable Unavailable Problems Combined list of problems from Department of Defense and Veterans Affairs facilities. It does not include entries that were removed or entered in error. Problem Status Onset Problem Type Date of Comments Source Date Resolution Diagnosis: Active Diagnosis [facility] W[facility] ICD-10-CM Z71.0 [place] [facility] Prsn encntr hlth serv to consult on behalf of another personwith Provider Comments: Person Encountering Health Services to Consult on Behalf of another Person Encounters Combined list of: 1) Encounters from Department of Veterans Affairs facilities going back up to the last 18 months. 2) Encounters from the Department of Defense facilities going back up to 280 months. Location Location Encounter Encounter Reason Attending ADM DC Stat us Disposition Source Details Type Number For Provider Date Date Visit CASE [id number] Diagnos SARAVANAN,RU 01/28 [facility] [id number] is: CNTR L ICD-10- WSTRN CM [place] Z71.0 SETS Prsn HCS encntr hlth serv to consult on behalf of another person< br/>wit h Provide r Comment s: Person [facility] s to Consult on Behalf of another Person [place] [id number] Sajan COE,GAYLE 02/10 [facility] A PHONE CALL [id number] is: CNTR L 5-10 MIN ICD-10- WSTRN CM [place] Z71.0 SETS Prsn HCS encntr hlth serv to consult on behalf of another person< br/>wit h Provide r Comment s: Person [facility] Service s to Consult on Behalf of another Person
--- OUTSIDE RECORDS SUMMARY | 2022-08-25 18:59 | XMS_ITS | Continuity of Care Document ---
:1980 Author Organization [facility] Address [address] [place] [address]- Care Team Providers Name Role Phone Yoly PIERRE, Jamee Ordoñez Primary Care Physician [phone] Encounter [facility] Date(s): 12/12/19 - 01/20/[address] [address]- [facility] Attending Physician: Jamee Frederick MD Admitting Physician: Jamee Frederick MD Referring Physician: Jamee Frederick MD Allergies, Adverse Reactions, Alerts Substance Reaction Severity Status doxycycline rash Active sertraline unsure Active sulfa drugs hives Active Zoloft hallucinations Active Zithromax Z-Mayco itching Active Immunizations Given and Recorded Vaccine Date Status Refusal Reason tetanus-diphtheria toxoids (Td)1 07/30/18 Given tetanus-diphtheria toxoids (Td)2 12/03/98 Given influ virus vac, H1N1, inactive(oldterm) 10/28/12 Given FluLaval (oldterm)3 07/19/09 Given Tet/Diphth/Acel, Pertussis (oldterm) 09/08/08 Given hepatitis B pediatric vaccine 12/09/96 Given hepatitis B pediatric vaccine 07/06/96 Given hepatitis B pediatric vaccine 06/06/96 Given Measles/Mumps/Rubella Virus Vaccine 08/27/93 Given Measles/Mumps/Rubella Virus Vaccine 11/20/82 Given 1Result Comment: [07/30/2018] [facility]-[id number] Note: [id number] Note: declines Medications LORazepam 0.5 mg oral tablet 1 tablet = 0.5 mg, By Mouth, 2 times a day, PRN as needed for anxiety, # 10 tablet, 0 Refills, Maintenance, 04/28/19 11:31:48 EDT, Tablet Start Date: 04/28/19 Status: Ordered Problem List Condition Effective Dates Status Health Status Informant Antibody studies abnormal(Confirmed)1 Active Anxiety(Confirmed) Active Diarrhea(Confirmed)2, 3 Active Toro's disease(Confirmed)4 Active HEADACHE(Confirmed)5 01/26/09 Active Hemangioma of liver(Confirmed)6, 7, 8, Active 9 Urinary frequency(Confirmed) Active Lipoma(Confirmed)10 Active Multiple thyroid nodules;shrinking Active 2017(Confirmed)11 Overweight(Confirmed) Active Overweight and Obesity(Confirmed) 03/18/12 Active Pelvic floor dysfunction(Confirmed) Active Temporomandibular joint disorder 01/26/09 Active (TMJ)(Confirmed) 1RH positive anti JKB; Cpreail8guiwkk ODP3toe culture neg wbc neg o/k3vnkmmva on thyroid replacement by Endocrinologfy DR Lazo;even though she is euthyroid5 muscle tension,limbitrol; DR VazquezYkzolbgy2uomeczv [id number] compatible [id number]<MRI done,compatible with cysts repeat 3 qixqch6wjb Ultrasound;clarify with CT [id number] once;[id number] Alli folowing; normal TFTs, negative perxidase; ultrasound pending Social History Social History Type Response Smoking Status Never smoker entered on: 11/16/13 Sex
--- OUTSIDE RECORDS SUMMARY | 2022-08-25 18:59 | XMS_ITS ---
:1980 Author Organization Department [facility] Address [address] [place] [id number] Selected Encounter This section includes the information on record at [place] for the Encounter. Date/Time Encounter Type Encounter Reason Provider Source Description Jan 28, 2022 CASE MANAGEMENT CAREGIVER SUPPORT ICD-10-CM Z71.0 KAIN RONDON 01:08 PM PROGRAM Prsn encntr hlth E serv to consult on behalf of another person with Provider Comments: Person Encountering Health Services to Consult on Behalf of another Person IHE Encounter Template Text not used by [place] Assessments - Encounter Diagnoses This section includes the primary and secondary diagnoses documented for the Encounter. Date/Time Primary/Secondary Diagnosis Name Provider Source Diagnosis Jan 28, 2022 PRIMARY Prsn encntr KAIN COE [facility] 01:34 PM hlth serv to [facility] consult on behalf of another person Encounter Notes: All associated encounter notes This section contains the clinical notes associated to the Encounter. Date/Time Encounter Note(s) Provider Source Jan 28, 2022 01:08 PM CAREGIVER CERTIFICATE: KAIN COE [facility] LOCAL TITLE: CSP [facility] CAREGIVER ASSESSMENT [facility] STANDARD TITLE: CAREGIVER CERTIFICATE DATE OF NOTE: JAN 28, 2022@13:08 ENTRY DATE: JAN 28, 2022@13:08:51 AUTHOR: KAIN COE EXP COSIGNER: URGENCY: STATUS: COMPLETED Program of Comprehensive Assistance for Family C aregivers Caregiver Assessment As part of the Program of Comprehensive Assistan ce for Family Caregivers, Family Caregiver/applicant(s) complete an assess ment during the application and/or reassessment process. The caregiver asses sment is conducted to obtain information at it relates to the needs of the ca regiver. Caregiver Support Program (CSP) staff provide information on avail able resources and answer questions related to the program. Date of Assessment: Jan Identify the caregiver using Full Name and one o f the other kiran identifiers Full Name: AUSTIN MERIDA Full SSN: [id number] Date of : Aug Address: [address] [place] [id number] Phone number: The caregiver assessment is being conducted as p art of the: Application Process Method of Contact: Video Telehealth Caregiver Contact Details: Best contact number for backup/emergency commun ication: PATIENT PHONE - Caregiver Location/Surroundings During Visit: Caregiver location during visit Home [address], [place] [address] Patient confirms location is safe and private f or visit. Visit conducted by clinical video telehealth. Caregiver verbal consent obtained. Location/emergency number confirmed. Type of Family Caregiver/applicant: Primary Family Caregiver/applicant Ismay being cared for: Meghan Romero CAREGIVER INFORMATION Caregiver/applicant is at least 18 years of age or older: Yes Caregiver/applicant is a family member of the Ve burns or caregiver lives science consultant with the or will agree to do so if designated as a Family Caregiver: Yes Relationship to : Significant other Caregiver's Insurance Status: Private Health Insurance Comment: [employer] CAREGIVER RESPONSIBILITIES Employment: Part-time Comment: [employer] 4pm -8pm School: Not Applicable Caregiver for Others: Child/children Comment: children and 's child Volunteer Work: No CAREGIVER HISTORY Caregiver reports past caregiving experience. Details: took care of grandmother, Took care of Godmother for two years before she passed in 07/2021 Caregiver reports receiving/attending caregiver training/education. Details: CG reports, I giancarlo t to the [employer] [employer] program at [facility] Length of time caregiver reports caring for the : Less than 1 year Comment: CG reports she began caring for the hannah burns in 05/2021, 2 mo. after entering their romantic relationship. CG reports stacie has been living with her since 07/2021 and is currently in the process of selling her home and permanently living with [facility] in place to assist the at [facility] e: None Caregiver's report of how a typical day is spent : CG reports she is up by gets up at 630a and supp orts getting her two oldest children ready for the bus by 7a (12yo & 14). CG reports she gets the younger children up, gets them ready , and feeds them breakfast. CG reports she wakes the up by 8am, as she likes to travel in the car when CG is dropping the children off to school. CG reports the younger lissette caldera are then taken to school. CG reports her typic al day revolves around whether or not 's pain level, vet's appointments, a nd errands that need to be run. CG reports if she is able to be home she will come home and relax. CG reports she and eat lunch around 12:30p-1pm, and the children start getting picked up from school around 2pm. CG reports once all the children are home from school they all receive a snack and the children's bookbag/homew ork is addressed. CG reports thereafter she would start i dentifying what the family will have for dinner. CG reports the family has dinner together every . CG reports she goes to work - from 4p-8pm. CG reports vet and children are taken care of by family members/friends that live in the family h ome. CG reports children are bathed and in bed by 8pm. CG reports she ensures that everything is ready for the children for the followi ng morning. CG reports if vet has not taken a shower in the morning she would assist her with showering in the evenings. CG reports she'll be in bed by 11-11:30p. Ways in which caregiver role affects the [facility] everyday life: CG reports, It really hasn't. I've always been home with my kids. 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 Caregiver's description of their social support system: - My dance family, my dance moms Caregiver reports use of the following self-care strategies: CG reports, I take things d ay by day. I try not to stress the little things. I teach and I dance. Caregiver reports receiving regular assistance i n providing care to the Ismay from the following: CG reports, her housemate & adult jose lockett will assist when caregiver is at work. The Caregiver denies use or receipt of any suppo rtive services or programs. Caregiver reports needing the following addition al knowledge and/or support: n/a CAREGIVER ASSESSMENT The Caregiver has not experienced any recent jen nges in his/her physical or mental health. The Caregiver does not have any concerns about h is/her physical or emotional health. The Caregiver reports no current or past physica l or mental health conditions that would adversely affect his/her ability to p rovide personal care services. Clinical observations: Caregiver appears to be very dedicated to caring for and the household. Caregiver did not appear to be in acute physical or emotional distress. Caregiver appears to have ap propriate coping tools that effectively help manage stress. Caregiver interacted with her significan t other in a very caring/supportive manner thr ough the and Caregiver assessment. Caregiver reports being in good health and denies limitati ons that would impact her ability to care for her significant other. PHQ-2 A PHQ-2 screen was performed. The score was 0 w hich is a negative screen for depression. Over the past two weeks, how often have you bee n bothered by the following problems? 1. Little interest or pleasure in doing things Not at all 2. Feeling down, depressed, or hopeless Not at all PHQ-9 A PHQ-9 screen was performed. The score was 3 w hich is suggestive of no depression. 1. Little interest or pleasure in doing things Not at all 2. Feeling down, depressed, or hopeless Not at all 3. Trouble falling or staying asleep, or sleepi ng too much Several days 4. Feeling tired or having little energy Not at all 5. Poor appetite or overeating Several days 6. Feeling bad about yourself or that you are a failure or have let yourself or your family down Several days 7. Trouble concentrating on things, such as fred ding the newspaper or watching television Not at all 8. Moving or speaking so slowly that other peop le could have noticed. Or the opposite being so fidgety or restless that y ou have been moving around a lot more than usual Not at all 9. Thoughts that you would be better off o r of hurting yourself in some way Not at all 10. If you checked off any problems, how DIFFIC ULT have these problems made it for you to do your work, take care of things at home or get along with other people? Not difficult at all Dillingham Suicide Severity Rating Scale (C-SSRS) screener 1. Over the past month, have you wished you wer e or wished you could go to sleep and not wake up? No 2. Over the past month, have you had any actual thoughts of killing yourself? No 3. Over the past month, have you been thinking about how you might do this? Response not required due to responses to other questions. 4. Over the past month, have you had these thou ghts and had some intention of acting on them? Response not required due to responses to other questions. 5. Over the past month, have you started to wor k out or worked out the details of how to kill yourself? Response not required due to responses to other questions. 6. If yes, at any time in the past month did yo u intend to carry out this plan? Response not required due to responses to other questions. 7. In your lifetime, have you ever done anythin g, started to do anything, or prepared to do anything to end your life (for example, collected pills, obtained a gun, gave away valuables, went to e roof but didn't jump)? No 8. If YES, was this within the past 3 months? Response not required due to responses to other questions. Zarit Altoona Interview Zarit [place]ona Interview (Caregiver burden scale), copyright 1990 by Tho Maxwell and Kimmy Maxwell, with perm ission to use. ZBI Screening score (range 0-16): Score is 0, w hich reflects low caregiver burden (scores of less than 8). 1. Do you feel that because of the time you spe nd with your relative that you do not have enough time for yourself? Never 2. Do you feel stressed between caring for your relative and trying to meet other responsibilities (work/family)? Never 3. Do you feel strained when you are around you r relative? Never 4. Do you feel uncertain about what to do about your relative? Never The Caregiver reports that there are no current or past concerns regarding IPV domestic violence or safety. The caregiver reports currently feeling safe in their home. The Caregiver does not report any current legal concerns. The following legal services are needed: None The Caregiver does not report any current person al financial planning concerns. The following financial services are needed: None Caregiver strengths and coping skills: Strengths - I'm very outgoing. I'm a person kary t always wants to be there for somebody and help them. Once someone is feeling down I'll try to cheer them up. I'm trustworthy. I'm an animal lover. Coping skills: Dancing. Taking things day by da y and getting things done. Instead of just waiting to the last minute, so y ou're not stressed. With the kids, learning different. Stuff that can work fo r one may not work for the other. Knowing there's a difference between ever yone. Caregiver challenges and stressors: Challenges: Differences with the children. Them not understanding that they all can't have all my attent ion. There are so many of them. I can't just do one one always. Stressors: Not giving the c hildren enough time that they need when they want it separately. To make sure she's ok (). I s tress that she won't go backwards. Interventions/Plan (referrals, resources, educat ion, etc.): [facility] national website Summary: See above clinical observations. Caregiver was o pen, honest, and transparent during the comprehensive assessment. Cristi bryant is very dedicated to supporting and caring for . biodiesel engine specialist is eager to work collaboratively with [facility] and obtain further caregiver education. Writ er will remain available to support as needed and throughout [facility] application process. /eddy/ KAIN QUINN CAREGIVER SUPPORT ADMINISTRATION PROFESSIONAL Signed: 01/31/2022 06:38
--- OUTSIDE RECORDS SUMMARY | 2022-08-25 18:59 | XMS_ITS | Continuity of Care Document ---
:1980 Author Organization [facility] Address [address] [place] [id number]- Care Team Providers Name Role Phone Yoly PIERRE, Jamee Ordoñez Primary Care Physician Encounter [facility] Date(s): 12/22/19 - 02/08/[address] [address]- [facility] Attending Physician: Jamee Frederick MD Admitting [...] Virus Vaccine 11/20/82 Given 1Result Comment: [07/30/2018] [facility]-[id number] Note: [id number] Note: declines Medications LORazepam 0.5 mg oral [...] 01/26/09 Active (TMJ)(Confirmed) 1RH positive anti JKB; Hpawbig6ftzeql UDD7oet culture neg wbc neg o/o8beijjwg on thyroid replacement by Endocrinologfy DR Lazo;even though she is euthyroid5 muscle tension,limbitrol; DR VazquezNqpvudse8truuvgm ubldnkr5pbasgpjrw compatible cfiofecxmxv7mo<MRI done,compatible with cysts repeat 3 coaqld0lsw Ultrasound;clarify with CT kbec14rumbdptjt once;axdggob12RG Alli folowing; normal TFTs, negative perxidase; ultrasound pending Social History Social History Type Response Smoking Status Never smoker entered on: 11/16/13 Sex
[2022-08-25 19:09] LABS: Lipase 13 U/L (8-78)
[2022-08-25 19:32] LABS: C Reactive Protein 0.82 mg/dL (< or = 0.50)
[2022-08-25 20:15] LABS: Erythrocyte Sedimentation Rate 5 MM/HR (0-20)
== END 2022-08-25 20:25 | disposition home or self-care (01) ==
PROVIDERS: Physician Assistant Medical; Emergency Provider Emergency Medicine; PCP Internal Medicine
DX: S39.011A Strain of muscle, fascia and tendon of abdomen, initial encounter (principal); X58.XXXA Exposure to other specified factors, initial encounter; R10.31 Right lower quadrant pain; Z90.49 Acquired absence of other specified parts of digestive tract; Y93.9 Activity, unspecified; Y92.9 Unspecified place or not applicable; Y99.9 Unspecified external cause status
CPT/HCPCS: 36415; 74176; 80053; 83690; 84702; 85025; 85652; 86140; 99281; 99284

== ENCOUNTER 2022-09-03 10:30 | Outpatient (REF) | payer OTHER, SELFPAY ==
[2022-09-03 16:06] LABS: CT PCR NOT DETECTED (Not Detect.); NG PCR NOT DETECTED (Not Detect.)
[2022-09-04 10:14] LABS: BV Int Neg Control Negative (Negative); BV Int Pos Control Positive (Positive)
[2022-09-05 23:47] LABS: HPV mRNA E6/E7 rflx Not Detected (Not Detected)
== END 2022-09-03 10:31 | disposition home or self-care (01) ==
LOC: HO.LNP 10:30
PROVIDERS: Visit Provider Advanced Practice Midwife
DX: Z01.419 Encounter for gynecological examination (general) (routine) without abnormal findings (principal); Z11.51 Encounter for screening for human papillomavirus (HPV)
CPT/HCPCS: 87480; 87491; 87510; 87591; 87624; 87660; 88142

== ENCOUNTER 2022-09-05 12:20 | Outpatient (REF) | payer OTHER, SELFPAY ==
[2022-09-05 14:18] LABS: Appearance Urine Clear; Color Urine Yellow; Glucose Urine UA Negative (Negative); Leukocyte Esterase Urine Small (1+) (Negative); Nitrite Urine Negative (Negative); PH 5.5 (5.0-9.0); UMIC TRIGGER UA YES; UMIC TRIGGER UACC YES; Urine Blood Negative (Negative); Urine Ketones Negative (Negative); Urine Protein Negative (Neg-Trace)
[2022-09-05 14:35] LABS: Bacteria Urine None Seen (None Seen); Hyaline Casts Urine 0-2 /LPF (0-2); UACC Culture Trigger YES; WBC Urine 0-5 /HPF (0-5)
[2022-09-05 14:43] LABS: TSH reflex Free T4 0.79 uIU/mL (0.32-4.0); Vitamin D 25-OH Total 30.7 ng/mL (>30)
[2022-09-08 18:27] LABS: Thyroid Peroxidase Antibodies 369 IU/mL (<9)
== END 2022-09-05 12:21 | disposition home or self-care (01) ==
LOC: HO.HMGCLDS 12:20
PROVIDERS: Advanced Practice Midwife; PCP Internal Medicine; Visit Provider Internal Medicine
DX: Z00.01 Encounter for general adult medical examination with abnormal findings (principal); E06.3 Autoimmune thyroiditis; E55.9 Vitamin D deficiency, unspecified; R30.0 Dysuria; Z83.49 Family history of other endocrine, nutritional and metabolic diseases
CPT/HCPCS: 36415; 81001; 81003; 82306; 84443; 86376; 87086

== ENCOUNTER → 2022-09-17 15:49 | Outpatient (BNVA) | payer OTHER, SELFPAY | PROVIDERS: PCP Internal Medicine; Visit Provider Internal Medicine Endocrinology, Diabetes & Metabolism | DX: E06.3 Autoimmune thyroiditis (principal); E04.2 Nontoxic multinodular goiter; E66.01 Morbid (severe) obesity due to excess calories; Z68.41 Body mass index [BMI] 40.0-44.9, adult | CPT/HCPCS: 99202 ==

== ENCOUNTER 2022-09-24 11:58 | Outpatient (REF) | payer OTHER, SELFPAY ==
[2022-09-24 14:39] LABS: Rheumatoid Factor < 13.0 IU/mL (<15.0)
[2022-09-24 14:45] LABS: Erythrocyte Sedimentation Rate 7 MM/HR (0-20)
[2022-09-24 15:08] LABS: Folate 6.4 ng/mL (> or = 4.0); Vitamin B12 284 pg/mL (200-900)
[2022-09-25 09:08] LABS: Lyme Abs Screen <0.90 index
[2022-09-25 14:29] LABS: CRP High Sensitivity 6.6 mg/L
[2022-09-26 15:24] LABS: Anti Nuclear Antibody Screen POSITIVE (NEGATIVE); Anti Nuclear Antibody Titer 1:40 titer
== END 2022-09-24 11:59 | disposition home or self-care (01) ==
LOC: HO.HMGCLDS 11:58
PROVIDERS: Absent Provider Internal Medicine Endocrinology, Diabetes & Metabolism; PCP Internal Medicine; Visit Provider Internal Medicine
DX: L65.9 Nonscarring hair loss, unspecified (principal); L85.3 Xerosis cutis; M25.50 Pain in unspecified joint; R53.83 Other fatigue
CPT/HCPCS: 36415; 82607; 82746; 85652; 86038; 86039; 86141; 86431; 86617; 86618

== ENCOUNTER 2022-10-01 10:32 | Outpatient (REF) | payer OTHER, SELFPAY ==
--- NOTE | ~2022-10-01 | US_ITS ---
EXAMINATION: US THYROID CLINICAL INFORMATION: Nontoxic multinodular goiter. COMPARISON: None TECHNIQUE: Linear transducer grayscale and color Doppler examination with attention to the region of the thyroid. FINDINGS: SIZE: Measurements of the thyroid lobes and nodules are given in sagittal, anteroposterior and transverse dimensions respectively. Right Thyroid Lobe: 6.1 x 2.2 x 1.6 cm, volume 11.2 mL. Parenchyma: The gland echotexture is homogeneous. Thyroid vascularity is increased. Left Thyroid Lobe: 5.7 x 2.1 x 2.0 cm, volume 12.1 mL. Parenchyma: The gland echotexture is homogeneous. Thyroid vascularity is increased. Isthmus: 0.5 cm in maximum AP dimension. Estimated total number of nodules greater than or equal to 1 cm: 0. Charge Account Authorizer nodules are described as follows: 1. Location: Left mid pole. Size: 0.5 x 0.3 x 0.3 cm, volume 0.02 mL. Nodule characteristics: Composition: Spongiform (0). ACR TI-RADS total points: 0 ACR TI-RADS category: 1 NODES: No lymphadenopathy is seen in the tissue surrounding the thyroid gland. US/US thyroid IMPRESSION: No significant thyroid abnormality appreciated. ACR TI-RADS RECOMMENDATION REFERENCE: * TR1 (0 point) and TR 2 (2 points): No FNA or follow up.
[2022-10-01 14:11] LABS: Appearance Urine Cloudy; Color Urine Yellow; Glucose Urine UA Negative (Negative); Leukocyte Esterase Urine Trace (Negative); Nitrite Urine Negative (Negative); Specific Gravity - Urine <= 1.005 (1.005-1.025); UMIC TRIGGER UA YES; UMIC TRIGGER UACC YES; Urine Blood Negative (Negative); Urine Ketones Negative (Negative); Urine Protein Negative (Neg-Trace)
[2022-10-01 14:17] LABS: Bacteria Urine Trace (None Seen); Hyaline Casts Urine 0-2 /LPF (0-2); RBC Urine 0-2 /HPF (0-2); WBC Urine 0-5 /HPF (0-5)
== END 2022-10-01 10:33 | disposition home or self-care (01) ==
LOC: HO.HMGCX 10:32
PROVIDERS: Advanced Practice Midwife; PCP Internal Medicine; Visit Provider Internal Medicine Endocrinology, Diabetes & Metabolism
DX: E04.2 Nontoxic multinodular goiter (principal)
CPT/HCPCS: 76536; 81001

== ENCOUNTER 2022-11-24 08:53 | Outpatient (REF) | payer OTHER, SELFPAY ==
[2022-11-24 12:16] LABS: Free T4 (Free Thyroxine) 0.96 ng/dL (0.71-1.85); Thyroid Stimulating Hormone 1.21 uIU/mL (0.32-4.0)
[2022-11-24 14:02] LABS: Total Volume 24 Hour Urine 2950 mL
[2022-11-24 14:11] LABS: Creatinine, 24Hr Urine 1.2 G/Day (1.0-2.0); Creatinine, mg/dL 39.97
[2022-11-25 10:04] LABS: Thyroid Peroxidase Antibodies 196 IU/mL (<9)
[2022-12-01 12:03] LABS: Cortisol Free, 24 Hr Urine 22.1 mcg/24 h (4.0-50.0); Creatinine, 24 Hr Urine 1.17 g/24 h (0.50-2.15); Total Volume, 24 Hr Urine 2950 mL
== END 2022-11-24 08:54 | disposition home or self-care (01) ==
LOC: HO.HMGCLDS 08:53
PROVIDERS: Absent Provider Internal Medicine Endocrinology, Diabetes & Metabolism; PCP Internal Medicine; Visit Provider Internal Medicine
DX: E66.01 Morbid (severe) obesity due to excess calories (principal); E06.3 Autoimmune thyroiditis; L85.3 Xerosis cutis; M25.50 Pain in unspecified joint; R53.83 Other fatigue; E03.9 Hypothyroidism, unspecified
CPT/HCPCS: 36415; 82530; 82570; 84439; 84443; 86376

== ENCOUNTER → 2022-12-16 10:16 | Outpatient (BNVA) | payer OTHER, SELFPAY | PROVIDERS: PCP Internal Medicine; Visit Provider Student in an Organized Health Care Education/Training Program | DX: M17.0 Bilateral primary osteoarthritis of knee (principal); B35.6 Tinea cruris; R76.8 Other specified abnormal immunological findings in serum | CPT/HCPCS: 99202 ==

== ENCOUNTER → 2023-02-03 10:30 | Outpatient (BNVA) | payer OTHER, SELFPAY | PROVIDERS: PCP Internal Medicine; Visit Provider Advanced Practice Midwife | DX: N92.0 Excessive and frequent menstruation with regular cycle (principal); E06.3 Autoimmune thyroiditis; E66.01 Morbid (severe) obesity due to excess calories; Z68.34 Body mass index [BMI] 34.0-34.9, adult; Z98.890 Other specified postprocedural states | CPT/HCPCS: 99212 ==

== ENCOUNTER → 2023-02-19 10:35 | Outpatient (BNVA) | payer OTHER, SELFPAY | PROVIDERS: PCP Internal Medicine; Visit Provider Advanced Practice Midwife | DX: Z30.013 Encounter for initial prescription of injectable contraceptive (principal) | CPT/HCPCS: 96372; 99211 ==

== ENCOUNTER 2023-05-07 09:18 | Outpatient (AMB) | payer OTHER, SELFPAY ==
[2023-05-07 09:29] VITALS: BMI 34.2
--- NOTE | 2023-05-07 09:29 | AM.OFFVISNUR ---
Intake Vital Signs 05/07/23 09:29 Height 5 ft 7 in Weight 98.94 kg BMI 34.2 Intake Visit Reasons: DEPO Allergies azithromycin [Azithromycin] Allergy (Unknown, Verified 02/03/23 10:41) RASH doxycycline [Doxycycline] Allergy (Unknown, Verified 02/03/23 10:41) RASH Iodinated Contrast Media [IV CONTRAST] Allergy (Unknown, Verified 02/03/23 10:41) HIVES sulfamethoxazole Allergy (Unknown, Verified 02/03/23 10:41) unknown Sulfamethoxazole Allergy (Unknown, Uncoded 02/03/23 10:41) rash Nursing Note Karen is here today for her Scheduled Depo-Provera inj. She denies any problems. Follow up in 12 weeks Office Procedures Depo Questionnaire If YES to any of the following questions, please consult a provider. Date of last injection: 02/19/23 Date of last gynecology exam: 09/03/22 Menstrual pattern since last injection has been: Not Applicable Irregular bleeding?: No Breast lumps or other breast changes?: No Changes in weight or appetite?: No Depression or changes in mood?: No Abnormal hair growth or loss?: No Skin problems (rash, acne, discoloration)?: No Pain at the injection site?: No Headaches?: No Nervousness?: No Abdominal pain or cramping?: No Dizziness or nausea?: No Fatigue or weakness?: No Decrease in sexual drive?: No Chest pain or shortness of breath?: No Swelling in arms or legs?: No Form completed by?: Roe Ewing LPN Office Meds Depo-Provera Performing Provider: Margie Logan CNM Administered by: Mandy Ewing LPN on 05/07/23 09:30 Dose Route Admin Location Lot Number Expiration Date NDC Board Mixer Tender 150 mg IM left deltoid [id number] 03/18/25 [id number] [facility] Coding Level of Care Code Established Pt Est Pt Level 1 (42934) Patient Type Established History Problem Focused Exam Problem Focused Medical Decision Making Straight Forward Diagnoses Time Spent (min) 15 Assessment & Plan Assessment & Plan Orders: Orders AMB Medroxyprogesterone Injection Patient Supplied Today N92.0 - Excessive and frequent menstruation with regular cycle
== END 2023-05-07 09:28 | disposition home or self-care (01) ==
LOC: HO.HWS 09:18
PROVIDERS: PCP Internal Medicine; Visit Provider Advanced Practice Midwife
DX: N92.0 Excessive and frequent menstruation with regular cycle (principal)

== ENCOUNTER → 2023-05-07 09:18 | Outpatient (BNVA) | payer OTHER, SELFPAY | PROVIDERS: PCP Internal Medicine; Visit Provider Advanced Practice Midwife | DX: N92.0 Excessive and frequent menstruation with regular cycle (principal) | CPT/HCPCS: 96372; 99211; J1050 ==

== ENCOUNTER 2023-05-08 09:14 | Outpatient (AMB) | payer OTHER, SELFPAY ==
--- NOTE | 2023-05-08 09:49 | MHC.OFFWIV ---
Intake Vital Signs 05/08/23 09:53 BP 120/76 Blood Pressure Location Rt brachial Position Sitting Pulse 84 Pulse Source Pulse Oximeter Temp 97.4 F Temp Source Temporal Artery Scan Pulse Oximetry (%) 97 Oxygen Delivery Method Room Air Intake Visit Reasons: EP Sinus infection? [phone] Intake Note: Patient here for sinus infection, pt states she is prone to sinus infections and suppose to receive allergy shots but doesnt due to anxiety. Patient Tobacco Use Status: Never used Tobacco Allergies azithromycin [Azithromycin] Allergy (Unknown, Verified 05/08/23 09:52) RASH doxycycline [Doxycycline] Allergy (Unknown, Verified 05/08/23 09:52) RASH Iodinated Contrast Media [IV CONTRAST] Allergy (Unknown, Verified 05/08/23 09:52) HIVES sulfamethoxazole Allergy (Unknown, Verified 05/08/23 09:52) unknown Sulfamethoxazole Allergy (Unknown, Uncoded 05/08/23 09:52) rash Do you need a note to return to daycare/school/sports/work: No HPI HPI Comments History of Present Illness Details This is a 42-year-old female presenting to the office today for sick visit. Patient presenting with sinus pain/pressure, congestion/rhinorrhea with yellow-green nasal drainage, and sinus headaches x1 week. Patient denies any known fevers or chills. She denies any known sick contacts. [facility] Medical History Abdominal wall mass of left upper quadrant Anxiety disorder Arthralgia Breast asymmetry Cholelithiasis COVID-19 vaccine administered Dry skin Elevated antinuclear antibody (BROOKE) level Family history of thyroid disorder Fatigue Toro's thyroiditis Hx of abnormal cervical Pap smear Influenza vaccination declined PTSD (post-traumatic stress disorder) Surgical History History of laparoscopic cholecystectomy History of loop electrical excision procedure (LEEP) History of tonsillectomy Family History Father Diabetes mellitus HTN (hypertension) CAD (coronary artery disease) CVD (cardiovascular disease) Asthma Myocardial infarction Mother Prediabetes Goiter Stroke Brother No problems noted. Daughter No problems noted. Daughter Mental health disorder Son No problems noted. Son No problems noted. Son No problems noted. Son No problems noted. Paternal Grandmother Breast cancer Ovarian cancer Maternal Grandmother Breast cancer Family/Other Colon cancer Social History Housing: House Alcohol intake: never Patient Tobacco Use Status: Never used Tobacco e-Cigarette/Vaping Use: Never Used service: No Current occupational status: employed Gender identity: Female Cognitive needs: No Hearing needs: No Vision needs: No Female Reproductive History Menstrual Age of Menarche: 13 Physical Exam Vital Signs: Last Vital Signs Temp 97.4 F 05/08/23 09:53 Pulse 84 05/08/23 09:53 BP 120/76 05/08/23 09:53 Pulse Ox 97 05/08/23 09:53 Oxygen Delivery Method Room Air 05/08/23 09:53 Const General: cooperative and no acute distress Orientation/consciousness: patient oriented x3 HEENT Head: Yes normal to inspection Ears: hearing grossly normal bilaterally General nose exam: Normal external nose present Face and sinus: Yes sinus tenderness Mouth: Normal oral and palatal mucosa present Throat: Yes posterior oropharynx abnormal (Mild posterior oropharyngeal erythema.) Resp Effort & Inspection: normal respiratory effort Auscultation: clear to auscultation bilaterally Cardio Rate: regular rate Rhythm: regular rhythm Heart sounds: no gallops, no murmurs and no rubs GI Inspection: Yes normal to inspection and No distended Palpation (GI): Soft to palpation and nontender Auscultation: normal bowel sounds Skin General skin exam: no rashes or lesions noted Neuro General: patient oriented x3 Cranial nerves: Yes CN's II-XII intact bilaterally Motor exam (neuro): 5/5 motor strength present throughout Assessment & Plan Assessment & Plan (1) Sinusitis: Code(s): J32.9 - Chronic sinusitis, unspecified Plan Patient presenting with signs and symptoms most consistent with acute bacterial rhinosinusitis. Recommended symptomatic management including rest, increased fluids, advil/tylenol for pain/fever, and over the counter throat lozenges/decongestants. PO amoxicillin 500mg every 8 hours x 10 days. Patient also sent with a prescription for fluconazole as she usually gets a yeast infection she takes antibiotics. Patient advised to follow up here or go to the emergency room for worsening/persistent symptoms. Patient verbalizes her understanding she is in agreement with the plan. Medications: Changed From fluconazole (Diflucan) 150 mg PO Q3D 2 doses 2 tabs 0RF To fluconazole (Diflucan) Take 1 tablet once for any symptoms of yeast infection. If symptoms persist, repeat dose in 3 days. 150 mg PO Q3D 2 tabs 0RF 2 doses Refilled amoxicillin 500 mg PO Q8H 30 caps 0RF Coding Level of Care Code Est Pt Level 3 (79383) Diagnoses Sinusitis J32.9
[2023-05-08 09:53] VITALS: BP 120/76; PULSE 84; TEMP 36.3; O2SAT 97
== END 2023-05-08 10:13 | disposition home or self-care (01) ==
PROVIDERS: PCP Internal Medicine; Visit Provider Physician Assistant Medical
DX: J32.9 Chronic sinusitis, unspecified (principal)
CPT/HCPCS: 99213

== ENCOUNTER → 2023-07-03 11:15 | Outpatient (BNV) | payer OTHER, SELFPAY | PROVIDERS: PCP Internal Medicine; Visit Provider Radiology Diagnostic Radiology | DX: Z12.31 Encounter for screening mammogram for malignant neoplasm of breast (principal) | CPT/HCPCS: 77063; 77067 ==

== ENCOUNTER 2023-07-03 11:24 | Outpatient (REF) | payer OTHER, SELFPAY | END 2023-07-03 11:25 | disposition home or self-care (01) | LOC: HO.MAMMO 11:24 | PROVIDERS: PCP Internal Medicine; Visit Provider Internal Medicine | DX: Z12.31 Encounter for screening mammogram for malignant neoplasm of breast (principal) | CPT/HCPCS: 77063; 77067 ==

== ENCOUNTER 2023-07-30 08:51 | Outpatient (AMB) | payer OTHER, SELFPAY ==
--- NOTE | 2023-07-30 09:10 | AM.OFFVISNUR ---
Intake Vital Signs 07/30/23 09:11 Height 5 ft 7 in Weight 91.626 kg BMI 31.6 Intake Visit Reasons: DEPO Allergies azithromycin [Azithromycin] Allergy (Unknown, Verified 05/08/23 09:52) RASH doxycycline [Doxycycline] Allergy (Unknown, Verified 05/08/23 09:52) RASH Iodinated Contrast Media [IV CONTRAST] Allergy (Unknown, Verified 05/08/23 09:52) HIVES sulfamethoxazole Allergy (Unknown, Verified 05/08/23 09:52) unknown Sulfamethoxazole Allergy (Unknown, Uncoded 05/08/23 09:52) rash Office Procedures Depo Questionnaire If YES to any of the following questions, please consult a provider. Date of last injection: 05/07/23 Date of last gynecology exam: 09/03/22 Menstrual pattern since last injection has been: Not Applicable Irregular bleeding?: No Breast lumps or other breast changes?: No Changes in weight or appetite?: No Depression or changes in mood?: No Abnormal hair growth or loss?: No Skin problems (rash, acne, discoloration)?: No Pain at the injection site?: No Headaches?: No Nervousness?: No Abdominal pain or cramping?: No Dizziness or nausea?: No Fatigue or weakness?: No Decrease in sexual drive?: No Chest pain or shortness of breath?: No Swelling in arms or legs?: No Any other problems or concerns?: none voiced Form completed by?: Roe Ewing LPN Office Meds Depo-Provera 150 mg/mL intramuscular syringe Performing Provider: Conchis Esteban CNM Performing Location: [facility] Administered by: Mandy Ewing LPN on 07/30/23 09:11 Dose Route Admin Location Dispensed Lot Number Expiration Date [facility] Email Production Consultant 150 mg IM rt. deltoid 1 mL [id number] 11/18/25 73934-531-76 [facility] Coding Level of Care Code Established Pt Est Pt Level 1 (60314) Patient Type Established History Problem Focused Exam Problem Focused Medical Decision Making Straight Forward Time Spent (min) 15 Assessment & Plan Assessment & Plan Orders: Orders AMB Medroxyprogesterone Injection Patient Supplied Today N92.0 - Excessive and frequent menstruation with regular cycle
[2023-07-30 09:11] VITALS: BMI 31.6
== END 2023-07-30 09:09 | disposition home or self-care (01) ==
PROVIDERS: PCP Internal Medicine; Visit Provider Advanced Practice Midwife
DX: N92.0 Excessive and frequent menstruation with regular cycle (principal)

== ENCOUNTER → 2023-07-30 08:51 | Outpatient (BNVA) | payer OTHER, SELFPAY | PROVIDERS: PCP Internal Medicine; Visit Provider Advanced Practice Midwife | DX: Z30.42 Encounter for surveillance of injectable contraceptive (principal) | CPT/HCPCS: 96372; 99211; J1050 ==

== ENCOUNTER 2023-08-27 21:19 | Emergency (ER) | payer OTHER, SELFPAY ==
[2023-08-27 21:30] VITALS: BP 131/87; PULSE 68; RESP 18; TEMP 36.4; O2SAT 100; BMI 35.2
[2023-08-27 22:35] VITALS: BP 126/60; PULSE 86; RESP 16; TEMP 36.4; O2SAT 100
--- NOTE | 2023-08-27 23:11 | ED.GENADULT ---
HPI - General Adult General Chief complaint: General Medical Stated complaint: bilat feet ?chemical burn Time Seen by Provider: 08/27/23 22:47 History of Present Illness HPI narrative: patient is a 43-year-old female presented today after noticing behind the nail Korean patient had nails that appear dark in has irregularities and also thickened. She cooled it and found out that she may have fungus in her toenails. Patient has some in all her toes. Was worried and decided to come to the emergency department. Also complaining of congestion. When she has knee she saw lots of mucus. She has been treated previously with amoxicillin in the past with good relief of symptoms. Patient from home. No fever no chills. No difficulty breathing. No history of diabetes. Related Data Home Medications Medication Instructions Recorded Confirmed aspirin 81 mg tablet,delayed 81 mg PO DAILY 11/21/20 02/03/23 release (Adult Low Dose Aspirin) Previous Rx's Medication Instructions Recorded lorazepam 0.5 mg tablet 0.5 mg PO DAILY PRN anxiety #10 09/14/22 tabs loratadine 10 mg tablet (Allergy 10 mg PO DAILY PRN allergy 11/14/22 Relief (loratadine)) symptoms #90 tabs clotrimazole-betamethasone 1 1 appl topical BID #45 grams 12/16/22 %-0.05 % topical cream sodium chloride 0.65 % nasal spray 1 spray intranasal BID PRN dry 01/02/23 aerosol (Saline Nasal) nasal passages #88 mL medroxyprogesterone 150 mg/mL 150 mg IM Q12W #1 mL 02/03/23 intramuscular suspension (Depo-Provera) diclofenac sodium 1 % topical gel 4 g topical 2XD #100 grams 03/23/23 amoxicillin 500 mg capsule 500 mg PO Q8H #30 caps 05/08/23 fluconazole 150 mg tablet 150 mg PO Q3D 2 doses #2 tabs 05/08/23 (Diflucan) amoxicillin 500 mg capsule 500 mg PO TID #21 caps 08/27/23 Allergies Allergy/AdvReac Type Severity Reaction Status Date / Time Latex, Natural Rubber Allergy Intermediate skin Verified 08/27/23 21:30 peeling azithromycin [Azithromycin] Allergy Unknown RASH Verified 08/27/23 21:30 doxycycline [Doxycycline] Allergy Unknown RASH Verified 08/27/23 21:30 Iodinated Contrast Media Allergy Unknown HIVES Verified 08/27/23 21:30 [IV CONTRAST] sulfamethoxazole Allergy Unknown unknown Verified 08/27/23 21:30 Sulfamethoxazole Allergy Unknown rash Uncoded 05/08/23 09:52 Review of Systems Review of Systems: No chest pain or shortness of breath no diaphoresis Yes all other systems are reviewed and are negative [facility] Past Medical History Medical History Abdominal wall mass of left upper quadrant Anxiety disorder Arthralgia Breast asymmetry Cholelithiasis COVID-19 vaccine administered Dry skin Elevated antinuclear antibody (BROOKE) level Family history of thyroid disorder Fatigue Toro's thyroiditis Hx of abnormal cervical Pap smear Influenza vaccination declined PTSD (post-traumatic stress disorder) Surgical History History of laparoscopic cholecystectomy History of loop electrical excision procedure (LEEP) History of tonsillectomy Family History Family History Father Diabetes mellitus HTN (hypertension) CAD (coronary artery disease) CVD (cardiovascular disease) Asthma Myocardial infarction Mother Prediabetes Goiter Stroke Brother No problems noted. Daughter No problems noted. Daughter Mental health disorder Son No problems noted. Son No problems noted. Son No problems noted. Son No problems noted. Paternal Grandmother Breast cancer Ovarian cancer Maternal Grandmother Breast cancer Family/Other Colon cancer Social History Social History Housing: House Alcohol intake: never Patient Tobacco Use Status: Never used Tobacco Smoked in Last 30 Days: No e-Cigarette/Vaping Use: Never Used Use of substances other than those prescribed or required for medical reasons: No Patient : No service: No Current occupational status: employed Gender identity: Female Cognitive needs: No Hearing needs: No Vision needs: No Physical Exam ED Vital Signs: Vital Signs - 24 hr 08/27/23 21:30 08/27/23 22:35 Temperature 97.6 F 97.6 F Pulse Rate 68 86 Respiratory Rate 18 16 Blood Pressure 131/87 126/60 Pulse Oximetry 100 100 Oxygen Delivery Method Room Air Room Air BMI result Body Mass Index 35.2 Appearance: Alert. Oriented X3. No acute distress. Eyes: Pupils equal, round and reactive to light. ENT: Pharynx normal. Neck: Normal inspection. Neck supple. No lymph nodes noted. No crepitus CVS: Normal heart rate and rhythm. Pulses normal. Normal S1 and S2 Respiratory: No respiratory distress. Breath sounds normal. No Wheezing. No rales Abdomen: Soft and nontender. No rigidity. No distention. good BS x4 Skin: Skin warm and dry. Normal skin color. Normal skin turgor. Extremities: No lower extremity edema. Neurovascular intact to all extremities. No Lacerations. No Rash. Patient's nail bed appeared thickened, slightly black In all the toes. Neuro: Oriented X 3. No motor deficit. No sensory deficit. Moving all extermities. No slurred speech Medical Decision Making Medical Decision Making MDM Narrative: Patient likely has mild sinusitis. There is no change in her voice. Her lungs are clear. Her O2 sat is normal. Patient insists that amoxicillin seems to help her with her sinusitis. A course of 7 days Amoxil was given. Explained to patient the fungal infection happen over prolonged period of time. Will take anti fungal weeks if not months to work. Will need to be monitored on an outpatient basis. It should really be prescribed by her primary physician. Patient states understanding. Will check patient's baseline sugar ensure patient does not have gross diabetes. Will have patient closely follow up outpatient. Differential Diagnosis Differential Diagnoses: The differential diagnosis associated with the presentation includes Sinusitis, seasonal allergies, fungal toenail, diabetes Admission/Observation Consideration of admission/observation: Escalation of care including admission/observation considered patient does not need admission. Grossly well-appearing normal O2 sat. No airway compromise Independent Historian Clinical information obtained from an independent historian. History obtained from or confirmed by: Spouse Prescription Management did not provide patient with anti fungal. Patient is to follow-up with her primary physician. Explained to patient the need for long-term treatment and following up liver function test when patient is on medications. Elected not to give patient's anti fungal in the emergency department as we cannot ensure follow-up. Discharge Plan Discharge Clinical Impression: Onychomycosis, Sinusitis Patient Disposition: Home, Self-Care Instructions: Sinusitis (ED) Prescriptions: New amoxicillin 500 mg capsule 500 mg PO TID Qty: 21 0RF No Action lorazepam 0.5 mg tablet 0.5 mg PO DAILY PRN (Reason: anxiety) Qty: 10 0RF loratadine [Allergy Relief (loratadine)] 10 mg tablet 10 mg PO DAILY PRN (Reason: allergy symptoms) Qty: 90 1RF Saline Nasal 0.65 % aerosol,spray 1 spray intranasal BID PRN (Reason: dry nasal passages) Qty: 88 1RF diclofenac sodium 1 % gel 4 g topical 2XD Qty: 100 3RF aspirin [Adult Low Dose Aspirin] 81 mg tablet,delayed release (DR/EC) 81 mg PO DAILY amoxicillin 500 mg capsule 500 mg PO Q8H Qty: 30 0RF fluconazole [Diflucan] 150 mg tablet 150 mg PO Q3D 0 Days Qty: 2 0RF Rx Instructions: Take 1 tablet once for any symptoms of yeast infection. If symptoms persist, repeat dose in 3 days. clotrimazole-betamethasone 1-0.05 % cream 1 appl topical BID Qty: 45 1RF Rx Instructions: Apply twice daily on affected area for 1 week, if no improvement continue for 1 more week medroxyprogesterone [Depo-Provera] 150 mg/mL suspension 150 mg IM Q12W Qty: 1 5RF Rx Instructions: Start with the beginning of next period, Then Q 12 weeks Referrals: Jamee Frederick MD [Primary Care Provider] -
[2023-08-27 23:27] LABS: Glucose, Whole Blood 120 mg/dL (60-115)
== END 2023-08-27 23:40 | disposition home or self-care (01) ==
PROVIDERS: Emergency Provider Emergency Medicine Emergency Medical Services; PCP Internal Medicine
DX: B35.1 Tinea unguium (principal); J32.9 Chronic sinusitis, unspecified; Z79.82 Long term (current) use of aspirin; Z79.899 Other long term (current) drug therapy
CPT/HCPCS: 82947; 99283; 99284

== ENCOUNTER 2023-10-20 10:57 | Outpatient (AMB) | payer OTHER, SELFPAY ==
[2023-10-20 11:24] VITALS: BMI 34.1
--- NOTE | 2023-10-20 11:24 | AM.OFFVISNUR ---
Intake Vital Signs 10/20/23 11:24 Height 5 ft 7 in Weight 98.883 kg BMI 34.1 Intake Visit Reasons: DEPO Allergies Latex, Natural Rubber Allergy (Intermediate, Verified 08/27/23 21:30) skin peeling azithromycin [Azithromycin] Allergy (Unknown, Verified 08/27/23 21:30) RASH doxycycline [Doxycycline] Allergy (Unknown, Verified 08/27/23 21:30) RASH Iodinated Contrast Media [IV CONTRAST] Allergy (Unknown, Verified 08/27/23 21:30) HIVES sulfamethoxazole Allergy (Unknown, Verified 08/27/23 21:30) unknown Sulfamethoxazole Allergy (Unknown, Uncoded 05/08/23 09:52) rash Nursing Note Karen is here today for her scheduled Depo-Provera inj She denies any complaints at this time. She is scheduled for her AG in Oct. Medication was received in sealed bag from pharmacy. Discussed changing Depo-inj rx to [facility] pharmacy and pt accepts. Office Procedures Depo Questionnaire If YES to any of the following questions, please consult a provider. Date of last injection: 07/30/23 Date of last menstrual period: 10/05/23 Date of last gynecology exam: 09/03/22 Menstrual pattern since last injection has been: Light Irregular bleeding?: No Breast lumps or other breast changes?: No Changes in weight or appetite?: No Depression or changes in mood?: No Abnormal hair growth or loss?: No Skin problems (rash, acne, discoloration)?: No Pain at the injection site?: No Headaches?: No Nervousness?: No Abdominal pain or cramping?: No Dizziness or nausea?: No Fatigue or weakness?: No Decrease in sexual drive?: No Chest pain or shortness of breath?: No Swelling in arms or legs?: No Form completed by?: Roe valencia LPN Office Meds Depo-Provera 150 mg/mL intramuscular syringe Performing Provider: Conchis Esteban CNM Performing Location: [facility] Administered by: Mandy Valencia LPN on 10/20/23 11:24 Dose Route Admin Location Dispensed Lot Number Expiration Date [facility] Heat Regulator 150 mg IM rt. deltoid 1 mL [id number] 01/17/24 31170-740-23 [facility] Coding Level of Care Code Established Pt Est Pt Level 1 (70051) Patient Type Established History Problem Focused Exam Problem Focused Medical Decision Making Straight Forward Time Spent (min) 20 Assessment & Plan Assessment & Plan Orders: Orders AMB Medroxyprogesterone Injection Patient Supplied Today N92.0 - Excessive and frequent menstruation with regular cycle
== END 2023-10-20 11:41 | disposition home or self-care (01) ==
LOC: HO.HWS 10:57
PROVIDERS: PCP Internal Medicine; Visit Provider Advanced Practice Midwife
DX: N92.0 Excessive and frequent menstruation with regular cycle (principal)

== ENCOUNTER → 2023-10-20 10:57 | Outpatient (BNVA) | payer OTHER, SELFPAY | PROVIDERS: PCP Internal Medicine; Visit Provider Advanced Practice Midwife | DX: Z30.42 Encounter for surveillance of injectable contraceptive (principal); N92.0 Excessive and frequent menstruation with regular cycle | CPT/HCPCS: 96372; 99211; J1050 ==

== ENCOUNTER 2023-11-07 10:16 | Outpatient (AMB) | payer OTHER, SELFPAY ==
[2023-11-07 12:31] VITALS: BP 118/66; PULSE 76; TEMP 36.6; O2SAT 97
--- NOTE | 2023-11-07 12:31 | MHC.OFFWIV ---
Intake Vital Signs 11/07/23 12:31 Height 5 ft 7 in BP 118/66 Blood Pressure Location Rt brachial Position Sitting Pulse 76 Pulse Source Pulse Oximeter Temp 97.8 F Temp Source Temporal Artery Scan Pulse Oximetry (%) 97 Oxygen Delivery Method Room Air Intake Visit Reasons: EST/Sinus Pressure ([phone]) Intake Note: pt is here for c.o sinus pressure Patient Tobacco Use Status: Never used Tobacco Allergies Latex, Natural Rubber Allergy (Intermediate, Verified 11/07/23 13:07) skin peeling azithromycin [Azithromycin] Allergy (Unknown, Verified 11/07/23 13:07) RASH doxycycline [Doxycycline] Allergy (Unknown, Verified 11/07/23 13:07) RASH Iodinated Contrast Media [IV CONTRAST] Allergy (Unknown, Verified 11/07/23 13:07) HIVES sulfamethoxazole Allergy (Unknown, Verified 11/07/23 13:07) unknown Sulfamethoxazole Allergy (Unknown, Uncoded 11/07/23 13:07) rash Medication List - Last Reconciled 11/07/23 by Meghan Mclaughlin CNP aspirin (Adult Low Dose Aspirin) 81 mg PO DAILY diclofenac sodium 1% 4 grams topical 2XD loratadine (Allergy Relief (loratadine)) 10 mg PO DAILY PRN lorazepam 0.5 mg PO DAILY PRN medroxyprogesterone (Depo-Provera) 150 mg IM Q12W sodium chloride 0.65% (Saline Nasal) 1 spray intranasal BID PRN Do you need a note to return to daycare/school/sports/work: Yes HPI HPI Comments History of Present Illness Details 43-year-old female presenting to the office today for sick visit. Patient presenting with sinus pain/pressure, congestion/rhinorrhea with yellow-green nasal drainage, and sinus headaches x1 week. Patient denies any known fevers or chills. She denies any known sick contacts. She does endorse hx of frequent chronic sinus infections. [facility] Medical History Elevated antinuclear antibody (BROOKE) level Dry skin Arthralgia Fatigue COVID-19 vaccine administered PTSD (post-traumatic stress disorder) Breast asymmetry Abdominal wall mass of left upper quadrant Family history of thyroid disorder Hx of abnormal cervical Pap smear Influenza vaccination declined Cholelithiasis Anxiety disorder Toro's thyroiditis Surgical History History of loop electrical excision procedure (LEEP) History of tonsillectomy History of laparoscopic cholecystectomy Family History Father Diabetes mellitus HTN (hypertension) CAD (coronary artery disease) CVD (cardiovascular disease) Asthma Myocardial infarction Mother Prediabetes Goiter Stroke Brother No problems noted. Daughter No problems noted. Daughter Mental health disorder Son No problems noted. Son No problems noted. Son No problems noted. Son No problems noted. Paternal Grandmother Breast cancer Ovarian cancer Maternal Grandmother Breast cancer Family/Other Colon cancer Social History Housing: House Alcohol intake: never Patient Tobacco Use Status: Never used Tobacco e-Cigarette/Vaping Use: Never Used service: No Current occupational status: employed Gender identity: Female Cognitive needs: No Hearing needs: No Vision needs: No Female Reproductive History Menstrual Age of Menarche: 13 Review of Systems Const All systems reviewed & are unremarkable except as noted in HPI and below Physical Exam Vital Signs: Last Vital Signs Temp 97.8 F 11/07/23 12:31 Pulse 76 11/07/23 12:31 BP 118/66 11/07/23 12:31 Pulse Ox 97 11/07/23 12:31 Oxygen Delivery Method Room Air 11/07/23 12:31 Const Other: General: cooperative and no acute distress Orientation/consciousness: patient oriented x3 HEENT Head: Yes normal to inspection Ears: hearing grossly normal bilaterally General nose exam: Normal external nose present Face and sinus: Yes sinus tenderness Mouth: Normal oral and palatal mucosa present Throat: Yes posterior oropharynx abnormal (Mild posterior oropharyngeal erythema.) Resp Effort & Inspection: normal respiratory effort Auscultation: clear to auscultation bilaterally Cardio Rate: regular rate Rhythm: regular rhythm Heart sounds: no gallops, no murmurs and no rubs GI Inspection: Yes normal to inspection and No distended Palpation (GI): Soft to palpation and nontender Auscultation: normal bowel sounds Skin General skin exam: no rashes or lesions noted Neuro General: patient oriented x3 Cranial nerves: Yes CN's II-XII intact bilaterally Motor exam (neuro): 5/5 motor strength present throughout Assessment & Plan Assessment & Plan (1) Chronic sinusitis of both maxillary sinuses: Code(s): J32.0 - Chronic maxillary sinusitis Plan: Patient presenting with signs and symptoms most consistent with acute bacterial rhinosinusitis. Recommended symptomatic management including rest, increased fluids, advil/tylenol for pain/fever, and over the counter throat lozenges/decongestants. PO amoxicillin 500mg every 8 hours x 10 days. Patient also sent with a prescription for fluconazole as she usually gets a yeast infection she takes antibiotics. Patient advised to follow up here or go to the emergency room for worsening/persistent symptoms. Patient verbalizes her understanding she is in agreement with the plan. (2) Yeast cystitis: Comment: Prophylactic treatment Code(s): B37.41 - Candidal cystitis and urethritis Plan: Fluconazole 150 mg po every 3 days for yeast infection associated with abx. Medications: New amoxicillin 500 mg PO BID 20 caps 0RF 10 days J32.0 - Chronic maxillary sinusitis fluconazole 150 mg PO Q3D 2 tabs 1RF 2 doses B37.41 - Candidal cystitis and urethritis Coding Level of Care Code Est Pt Level 3 (93808) Diagnoses Chronic sinusitis of both maxillary sinuses J32.0 Yeast cystitis B37.41
== END 2023-11-07 13:11 | disposition home or self-care (01) ==
PROVIDERS: PCP Internal Medicine; Visit Provider Nurse Practitioner Acute Care
DX: J32.0 Chronic maxillary sinusitis (principal); B37.41 Candidal cystitis and urethritis
CPT/HCPCS: 99051; 99213

== ENCOUNTER 2023-11-19 11:30 | Outpatient (AMB) | payer OTHER, SELFPAY ==
[2023-11-19 11:36] VITALS: BP 114/70; PULSE 80; O2SAT 99; BMI 34.9
--- NOTE | 2023-11-19 11:36 | A.OFFPC_ITS ---
Vital Signs 11/19/23 11:36 Height 5 ft 7 in Weight 223 lb BMI 34.9 BP 114/70 Blood Pressure Location Lt brachial Position Sitting Pulse 80 Pulse Source Pulse Oximeter Pulse Oximetry (%) 99 Oxygen Delivery Method Room Air Intake Visit Reasons: Annual PE/This was R/S from when Dr. DENG Intake Note: Pt is here today for her PE: Last mammogram 07/03/23, [place] 09/04/22 Allergies Latex, Natural Rubber Allergy (Intermediate, Verified 11/19/23 11:53) skin peeling azithromycin [Azithromycin] Allergy (Unknown, Verified 11/19/23 11:53) RASH doxycycline [Doxycycline] Allergy (Unknown, Verified 11/19/23 11:53) RASH Iodinated Contrast Media [IV CONTRAST] Allergy (Unknown, Verified 11/19/23 11:53) HIVES sulfamethoxazole Allergy (Unknown, Verified 11/19/23 11:53) unknown Sulfamethoxazole Allergy (Unknown, Uncoded 11/19/23 11:53) rash Medication List - Last Reconciled 11/19/23 by Jamee Frederick MD aspirin (Adult Low Dose Aspirin) 81 mg PO DAILY loratadine (Allergy Relief (loratadine)) 10 mg PO DAILY PRN lorazepam 0.5 mg PO DAILY PRN medroxyprogesterone (Depo-Provera) 150 mg IM Q12W sodium chloride 0.65% (Saline Nasal) 1 spray intranasal BID PRN Tobacco use date assessed: 11/19/23 Dental Screening Dental Screen Date: 11/19/23 Did you have a dental visit in the last 12 months?: Yes Did you have a dental problem in the last 6 months where you did not have access to dental care?: No Was dental information given to patient?: Patient has dentist HPI Annual PE/This was R/S from when Dr. DENG HPI Details 43-year-old lady here today for her phys ical exam. She is up-to-date with her cervical cancer screening, goes to [facility], and is currently on Depo- Provera. She is also up-to-date with her screening mammogram which has come back always within normal limits. She does not want to get flu shots or COVID vaccine boosters, but is up-to-date with her Tdap. She has Toro's thyroiditis, currently has an appointment to see endocrine clinic at [facility] in a.m. complains of having difficulty with losing weight despite adhering to healthy eating habits and getting regular exercise. Patient thinks that it might have something to do with her thyroid disorder. Has occasional anxiety attacks, needs prescription refill for lorazepam, as the last 1 she had was more than a year ago and is now . Rarely needing to use medication. Was recently seen at the walk-in clinic for acute sinus infection and placed on amoxicillin 500 mg twice a day for 10 days. Patient states that after finishing the antibiotic she still has residual tenderness over maxillary areas accompanied by nasal congestion. She has been diagnosed to have fibromyalgia, previously evaluated by H him see Rheumatology. [facility] Medical History (Updated 11/19/23 @ 12:55 by Jamee Frederick MD) Initiation of Depo Provera Menorrhagia with regular cycle Elevated antinuclear antibody (BROOKE) level Fatigue Family history of thyroid disorder Hx of abnormal cervical Pap smear Influenza vaccination declined Cholelithiasis Anxiety disorder Toro's thyroiditis Surgical History (Updated 11/19/23 @ 12:55 by Jamee Frederick MD) History of loop electrical excision procedure (LEEP) History of tonsillectomy History of laparoscopic cholecystectomy Family History Father Diabetes mellitus HTN (hypertension) CAD (coronary artery disease) CVD (cardiovascular disease) Asthma Myocardial infarction Mother Prediabetes Goiter Stroke Brother No problems noted. Daughter No problems noted. Daughter Mental health disorder Son No problems noted. Son No problems noted. Son No problems noted. Son No problems noted. Paternal Grandmother Breast cancer Ovarian cancer Maternal Grandmother Breast cancer Family/Other Colon cancer Social History Housing: House Alcohol intake: never Patient Tobacco Use Status: Never used Tobacco e-Cigarette/Vaping Use: Never Used service: No Current occupational status: employed Gender identity: Female Cognitive needs: No Hearing needs: No Vision needs: No Female Reproductive History Menstrual Age of Menarche: 13 Questionnaire PHQ-9 Over the last 2 weeks, how often have you been bothered by any of the following problems? 1. Little interest or pleasure in doing things: not at all 2. Feeling down, depressed, or hopeless: not at all 3. Trouble falling or staying asleep, or sleeping too much: not at all 4. Feeling tired or having little energy: not at all 5. Poor appetite or overeating: not at all 6. Feeling bad about yourself - or that you are a failure or have let yourself or your family down: several days 7. Trouble concentrating on things, such as reading the newspaper or watching television: not at all 8. Moving or speaking so slowly that other people could have noticed. Or the opposite - being so fidgety or restless that you have been moving around a lot more than usual: not at all 9. Thoughts that you would be better off or of hurting yourself in some way: not at all Total score: 1 Depression Screening Interpretation: Negative Depression Screening Done: Yes 74982 - PHQ-9 Billing: Yes Source: Developed by Drs. Ben Hicks, Daily Abreu, Bernardo Sena and colleagues, with an educational chinedu from [employer]. Thrive Questionnaire Date Thrive assessed: 11/19/23 I am a: Patient What is your living situation today?: I have a steady place to live Within the past 12 months, did the food you bought not last and you didn't have the money to get more?: Never true Within the past 12 months, did you worry whether your food would run out before you got money to buy more?: Never true Do you have trouble paying for medicines?: No Do you have trouble getting transportation to medical appointments?: No Do you have trouble paying your heating and electricity bill?: No Do you have trouble taking care of your child, family member or friend?: No Do you have trouble with day-to-day activities such as bathing, preparing meals, shopping, managing finances, etc.?: No Are you currently unemployed and looking for a job?: No Are you interested in more education?: No THRIVE Score: 0 AUDIT C Alcohol Use Questionnaire (AUDIT-C) 1. How often do you have a drink containing alcohol?: Never Total Score: 0 VIV-7 AMB Questionnaire VIV-7 Date VIV - 7 assessed: 11/19/23 Feeling nervous, anxious, or on edge: 1 = Several days Not being able to stop or control worryin = Several days Worrying too much about different things: 1 = Several days Trouble relaxin = Not at all Being so restless that it is hard to sit still: 0 = Not at all Becoming easily annoyed or irritable: 0 = Not at all Feeling afraid as if something awful might happen: 1 = Several days Total VIV-7 score (0-4 normal; 5-9 mild; 10-14 moderate; 15-21 severe): 4 Source: Developed by Drs. Ben Hicks, Daily Abreu, Bernardo Sena and colleagues, with an educational chinedu from [employer]. VIV-7 Assessment Billing VIV-7 Assessment Tool: VIV-7 Assessment 54125 Review of Systems Const Reports as per HPI, Reports fatigue and Reports weight gain Eyes Reports no additional complaints and Denies change in vision ENT Reports no additional complaints Card Denies chest pain, Denies irregular heart rhythm, Denies lightheadedness and Denies dyspnea Resp Denies chest congestion, Denies cough and Denies dyspnea GI Reports no additional complaints Reports no additional complaints and Denies nipple discharge Musc Reports arthralgias Skin/Breast Denies breast pain, Denies breast mass, Reports dry skin, Denies alopecia, Denies nipple discharge and Denies rash Neuro Reports no additional complaints Psych Reports as per HPI Endo Reports fatigue Shaun/Lymph Reports no additional complaints Aller/Immun Reports no additional complaints Physical exam (Primary Care) Vital Signs: Last Vital Signs Pulse 80 11/19/23 11:36 BP 114/70 11/19/23 11:36 Pulse Ox 99 11/19/23 11:36 Oxygen Delivery Method Room Air 11/19/23 11:36 BMI result Body Mass Index 34.9 BMI Assessment/Plan discussion: High BMI High, discussed plan: lifestyle, weight reduction, dietary and physical activity Tobacco/Smoking Status: Tobacco use Status Tobacco use date assessed 11/19/23 11/19/23 11:39 Patient Tobacco Use Status Never used Tobacco 11/19/23 11:39 e-Cigarette/Vaping Use Never Used 11/19/23 11:39 PHQ-9: PHQ-9 Score PHQ-9: Total score 2 11/19/23 11:43 Depression Screening Interpretation: Negative Thrive Assessment: Date of Thrive Assessment Date Thrive assessed 11/19/23 11/19/23 11:39 Const General: comfortable, no acute distress and alert Nutritional Appearance: obese Orientation/consciousness: patient oriented x3 HENMT Head: Yes normocephalic Ears: hearing grossly normal bilaterally, external ears normal, TM's normal bilaterally and EAC's normal General nose exam: Normal external nose present and No nasal discharge present Face and sinus: Yes sinus tenderness (maxillary areas) Mouth: Normal oral and palatal mucosa present and moist mucous membranes Eyes General: appearance normal, both eyes and all related structures Neck Neck: Yes full ROM, Yes no lymphadenopathy and Yes supple Thyroid: Thyroid normal and nontender Resp Auscultation: clear to auscultation bilaterally Cardio Other: S1-S2 present, regular rate and rhythm GI Other: Obese, soft, nontender, no mass palpated Auscultation: normal bowel sounds General: Yes no CVA tenderness Back/Spine/Pelvis Back: no CVA tenderness and No back tenderness Skin General skin exam: no rashes or lesions noted Neuro General: patient oriented x3, gait normal, moves all extremities, Normal light touch and pain sensation, no focal motor deficits and CN's II-XI intact bilaterally Extrem General: Yes full ROM, Yes no joint enlargement, Yes no pedal edema, Yes no calf tenderness and Yes normal gait Psych Appearance: grossly normal and well kempt Affect: normal affect Thought process: Normal thought process present Thought content: Normal thought content present Assessment and Plan Assessment & Plan (1) Annual visit for general adult medical examination with abnormal findings: Code(s): Z00.01 - Encounter for general adult medical examination with abnormal findings Plan: Will check appropriate labs. Recommended dental visit every 6 months and regular eye exams, at least every 2 years. Take adequate calcium in diet and vitamin-D 3 at 2000 IU per cap once a day, in addition to weight-bearing exercises to help maintain good muscle tone and weight control. Instructed to do self-breast exam, and continue yearly mammogram, currently up-to-date. She is also up-to-date with her cervical cancer screening, goes to [facility] for her routine Pap and pelvic exam. Up-to-date with Tdap but does not want to get a COVID vaccine or the flu shot (2) Fibromyalgia, primary: Code(s): M79.7 - Fibromyalgia Plan: Advise to do regular exercise (3) Fatigue: Code(s): R53.83 - Other fatigue Plan: Check CBC, vitamin B12, vitamin D level, TSH and free T4 (4) Vitamin D deficiency: Code(s): E55.9 - Vitamin D deficiency, unspecified Plan: Check vitamin-D level (5) Toro's thyroiditis: Code(s): E06.3 - Autoimmune thyroiditis Plan: Has an appointment for follow-up with Dr. Hernandez at [facility] in am , will check TSH, free T4 and thyroid peroxidase antibodies (6) Anxiety disorder: Code(s): F41.9 - Anxiety disorder, unspecified Qualifiers: Anxiety disorder type: generalized anxiety disorder Qualified Code(s): F41.1 - Generalized anxiety disorder Plan: Currently takes lorazepam only as needed for acute anxiety attacks, prescription sent for 10 tablets with no refill (7) Obesity, morbid, BMI 40.0-49.9: Code(s): E66.01 - Morbid (severe) obesity due to excess calories Plan: Recommended focusing on improving your health instead of dieting. : Eat Mediterranean diet, limit foods high in fat, sugar, and calories, eat slowly, pay attention to portion sizes, plan your meals ahead of time, start regular physical activity 150 minutes of moderate intensity exercise or 90 minutes/week of vigorous exercise will also be following up with Dr. Hernandez to see if thyroid is an issue with her inability to lose weight despite adhering to healthy eating habits and getting regular exercise. (8) Acute sinusitis: Code(s): J01.90 - Acute sinusitis, unspecified Plan: Still having residual tenderness over maxillary sinuses, accompanied by needs congestion. Will give another 5 day course of Augmentin 875 mg per tablet to take 1 every 12 hours for 5 more days. Return to clinic if no improvement of symptoms Orders: Orders Complete Blood Count Auto Diff Today E06.3 - Autoimmune thyroiditis, E55.9 - Vitamin D deficiency, unspecified, E66.01 - Morbid (severe) obesity due to excess calories, F41.9 - Anxiety disorder, unspecified, M79.7 - Fibromyalgia, R53.83 - Other fatigue, Z00.01 - Encounter for general adult medical examination with abnormal findings Thyroid Stimulating Hormone Today E06.3 - Autoimmune thyroiditis, E55.9 - Vitamin D deficiency, unspecified, E66.01 - Morbid (severe) obesity due to excess calories, F41.9 - Anxiety disorder, unspecified, M79.7 - Fibromyalgia, R53.83 - Other fatigue, Z00.01 - Encounter for general adult medical examination with abnormal findings Thyroid Peroxidase Antibodies Today E06.3 - Autoimmune thyroiditis, E55.9 - Vitamin D deficiency, unspecified, E66.01 - Morbid (severe) obesity due to excess calories, F41.9 - Anxiety disorder, unspecified, M79.7 - Fibromyalgia, R53.83 - Other fatigue, Z00.01 - Encounter for general adult medical examination with abnormal findings Vitamin B12 and Folate Today E06.3 - Autoimmune thyroiditis, E55.9 - Vitamin D deficiency, unspecified, E66.01 - Morbid (severe) obesity due to excess calories, F41.9 - Anxiety disorder, unspecified, M79.7 - Fibromyalgia, R53.83 - Other fatigue, Z00.01 - Encounter for general adult medical examination with abnormal findings Vitamin D 25-OH Total Today E06.3 - Autoimmune thyroiditis, E55.9 - Vitamin D deficiency, unspecified, E66.01 - Morbid (severe) obesity due to excess calories, F41.9 - Anxiety disorder, unspecified, M79.7 - Fibromyalgia, R53.83 - Other fatigue, Z00.01 - Encounter for general adult medical examination with abnormal findings Comprehensive [place]. Panel Fast Today E06.3 - Autoimmune thyroiditis, E55.9 - Vitamin D deficiency, unspecified, E66.01 - Morbid (severe) obesity due to excess calories, F41.9 - Anxiety disorder, unspecified, M79.7 - Fibromyalgia, R53.83 - Other fatigue, Z00.01 - Encounter for general adult medical examination with abnormal findings Lipid Panel Today E06.3 - Autoimmune thyroiditis, E55.9 - Vitamin D deficiency, unspecified, E66.01 - Morbid (severe) obesity due to excess calories, F41.9 - Anxiety disorder, unspecified, M79.7 - Fibromyalgia, R53.83 - Other fatigue, Z00.01 - Encounter for general adult medical examination with abnormal findings Free T4 (Free Thyroxine) Today E06.3 - Autoimmune thyroiditis, E55.9 - Vitamin D deficiency, unspecified, E66.01 - Morbid (severe) obesity due to excess calories, F41.9 - Anxiety disorder, unspecified, M79.7 - Fibromyalgia, R53.83 - Other fatigue, Z00.01 - Encounter for general adult medical examination with abnormal findings Medications: New amoxicillin-pot clavulanate 875-125 mg 1 tab PO Q12H 5 days 10 tabs 0RF Refilled lorazepam 0.5 mg PO DAILY PRN 10 tabs 0RF anxiety Coding Level of Care Code Est Pt Prev Care 40-64y(03226) Diagnoses Annual visit for general adult medical examination with abnormal findings Z00.01 Fibromyalgia, primary M79.7 Fatigue R53.83 Vitamin D deficiency E55.9 Toro's thyroiditis E06.3 Generalized anxiety disorder F41.1 Anxiety disorder type: generalized anxiety disorder Obesity, morbid, BMI 40.0-49.9 E66.01 Acute sinusitis J01.90 Additional Codes VIV-7 Assessment Billing - VIV-7 Assessment Tool: VIV-7 Assessment [id number] ([id number])
== END 2023-11-19 15:42 | disposition home or self-care (01) ==
PROVIDERS: PCP Internal Medicine; Visit Provider Internal Medicine
DX: Z00.00 Encounter for general adult medical examination without abnormal findings (principal); Z68.34 Body mass index [BMI] 34.0-34.9, adult; E66.01 Morbid (severe) obesity due to excess calories; F41.1 Generalized anxiety disorder; M79.7 Fibromyalgia; R53.83 Other fatigue; E55.9 Vitamin D deficiency, unspecified; E06.3 Autoimmune thyroiditis; J01.90 Acute sinusitis, unspecified
CPT/HCPCS: 99396

== ENCOUNTER 2023-11-24 09:15 | Outpatient (REF) | payer OTHER, SELFPAY ==
[2023-11-24 13:28] LABS: MANUAL DIFF FLAG NO
[2023-11-24 13:34] LABS: Basophils Percent Auto 0.4 % (0-2); Eosinophils Absolute Auto 0.1 X10*3/uL (0.0-0.4); Eosinophils Percent Auto 1.2 % (0-4); Hematocrit 47.5 % (37.0-47.0); Imm Gran Abs Auto 0.04 X10*3/uL (0.00-0.03); Imm Gran Pct Auto 0.5 % (0.0-0.4); Lymphocytes Absolute Auto 1.8 X10*3/uL (1.2-4.9); Lymphocytes Percent Auto 24.1 % (20-40); Mean Corpuscular HGB Conc 33.7 g/dl (31.0-35.0); Mean Corpuscular Hemoglobin 28.7 pg (27.0-33.0); Mean Corpuscular Volume 85.3 fL (80.0-98.0); Mean Platelet Volume 11.6 fL (9.4-12.3); Monocytes Absolute Auto 0.4 X10*3/uL (0.1-1.2); Monocytes Percent Auto 5.3 % (2-11); Neutrophils Absolute Auto 5.2 x10*3/uL (2.0-8.3); Neutrophils Percent Auto 68.5 % (45-73); Platelet Count 213 X10*3/uL (160-400); Red Blood Count 5.57 X10*6/uL (4.20-5.50); Red Cell Distribution Width 13.1 % (11.0-16.0); White Blood Count 7.6 X10*3/uL (4.8-10.8)
[2023-11-24 14:05] LABS: Alanine Aminotransferase 12 U/L (0-31); Albumin Level 4.5 g/dL (3.5-5.0); Alkaline Phosphatase 82 U/L (39-117); Anion Gap 12 (12-20); Aspartate Amino Transferase 10 U/L (5-31); Bilirubin Total 0.9 mg/dL (0.0-1.0); Blood Urea Nitrogen 8 mg/dL (9-16); Calcium 9.6 mg/dL (8.4-10.2); Carbon Dioxide 25 mmol/L (22-29); Chloride 108 mmol/L (96-108); Cholesterol 121 mg/dL (<200); Estimated Glomerular Filt Rate > 60; Glucose Fasting 93 mg/dL (60-99); HDL Cholesterol 38 mg/dL (>40); LDL Cholesterol Calculated 69 mg/dL (<100); Potassium 4.3 mmol/L (3.3-5.1); Sodium 141 mmol/L (135-145); Total Protein 7.1 g/dL (6.5-8.0); Triglycerides 73 mg/dL (<150)
[2023-11-24 14:06] LABS: Parathyroid Hormone Intact 44.3 pg/mL (8.7-77.1)
[2023-11-24 14:09] LABS: Magnesium 2.4 mg/dL (1.6-2.6)
[2023-11-24 14:15] LABS: Erythrocyte Sedimentation Rate 4 MM/HR (0-20)
[2023-11-24 14:16] LABS: Free T4 (Free Thyroxine) 1.01 ng/dL (0.71-1.85); Thyroid Stimulating Hormone 0.61 uIU/mL (0.32-4.0); Vitamin D 25-OH Total 30.2 ng/mL (>30)
[2023-11-24 14:29] LABS: Folate 7.3 ng/mL (> or = 4.0); Vitamin B12 237 pg/mL (200-900)
[2023-11-25 16:59] LABS: Triiodothyronine T3 Free 3.7 pg/mL (2.3-4.2)
[2023-11-25 19:49] LABS: Thyroid Peroxidase Antibodies 186 IU/mL (<9)
[2023-11-27 17:24] LABS: Zinc 86 mcg/dL (60-130)
[2023-11-27 18:33] LABS: Vitamin A 36 mcg/dL (38-98)
[2023-11-27 20:14] LABS: Selenium, Serum 116 mcg/L (63-160)
[2023-11-28 16:09] LABS: Vitamin B1 8 nmol/L (8-30)
[2023-12-01 04:35] LABS: Dihydrotestosterone 6 ng/dL (< OR = 20)
[2023-12-02 12:58] LABS: IGF-1 (Somatomedin C) 201 ng/mL (52-328); IGF-1 Z Score (Female) 0.8 SD (-2.0 - +2.0)
[2023-12-12 12:14] LABS: Testosterone, Total 10 ng/dL (2-45)
== END 2023-11-24 09:16 | disposition home or self-care (01) ==
LOC: HO.HMGCLDS 09:15
PROVIDERS: PCP Internal Medicine; Referring Provider Internal Medicine Endocrinology, Diabetes & Metabolism; Visit Provider Internal Medicine
DX: Z00.01 Encounter for general adult medical examination with abnormal findings (principal); M79.7 Fibromyalgia; E55.9 Vitamin D deficiency, unspecified; E06.3 Autoimmune thyroiditis; F41.9 Anxiety disorder, unspecified; E66.01 Morbid (severe) obesity due to excess calories; R53.82 Chronic fatigue, unspecified; L65.9 Nonscarring hair loss, unspecified; E04.2 Nontoxic multinodular goiter
CPT/HCPCS: 36415; 80053; 80061; 82306; 82607; 82642; 82746; 83735; 83970; 84255; 84305; 84402; 84403; 84425; 84439; 84443; 84481; 84590; 84630; 85025; 85652; 86376

== ENCOUNTER 2024-01-08 09:05 | Outpatient (AMB) | payer OTHER, SELFPAY ==
[2024-01-08 09:27] VITALS: BMI 34.9
--- NOTE | 2024-01-08 09:27 | AM.OFFVISNUR ---
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 Allergies Latex, Natural Rubber Allergy (Intermediate, Verified 11/19/23 11:53) skin peeling azithromycin [Azithromycin] Allergy (Unknown, Verified 11/19/23 11:53) RASH doxycycline [Doxycycline] Allergy (Unknown, Verified 11/19/23 11:53) RASH Iodinated Contrast Media [IV CONTRAST] Allergy (Unknown, Verified 11/19/23 11:53) HIVES sulfamethoxazole Allergy (Unknown, Verified 11/19/23 11:53) unknown Sulfamethoxazole Allergy (Unknown, Uncoded 11/19/23 11:53) rash Is last menstrual period known: No Post menopausal: No Patient : No Do you need a note to return to daycare/school/sports/work: No Nursing Note Karen is here for scheduled Depo provera injection. No c/o. Pt denies new medical problems or new meds. Pt tolerated injection well. Will schedule next injection in 12 weeks. Pt verbalizes understanding and agrees with plan. No further questions. Office Procedures Depo Questionnaire If YES to any of the following questions, please consult a provider. Date of last injection: 10/20/23 Date of last gynecology exam: 09/03/22 Menstrual pattern since last injection has been: Not Applicable Irregular bleeding?: No Breast lumps or other breast changes?: No Changes in weight or appetite?: No Depression or changes in mood?: No Abnormal hair growth or loss?: No Skin problems (rash, acne, discoloration)?: No Pain at the injection site?: No Headaches?: No Nervousness?: No Abdominal pain or cramping?: No Dizziness or nausea?: No Fatigue or weakness?: No Decrease in sexual drive?: No Chest pain or shortness of breath?: No Swelling in arms or legs?: No Form completed by?: Vivi Kim Office Meds Depo-Provera 150 mg/mL intramuscular syringe Performing Provider: Conchis Esteban CNM Performing Location: [facility] [place] Administered by: Vivi Kim on 01/08/24 09:30 Dose Route Admin Location Dispensed Lot Number Expiration Date [facility] Certified Teacher Assistant 150 mg IM right deltoid 1 mL [id number] 02/15/25 50388-831-65 [employer] Coding Level of Care Code Established Pt Est Pt Level 1 (49050) Patient Type Established History Problem Focused Medical Decision Making Straight Forward Time Spent (min) 12 Assessment & Plan Assessment & Plan Orders: Orders AMB Medroxyprogesterone Injection Patient Supplied Today Z30.42 - Encounter for surveillance of injectable contraceptive
== END 2024-01-08 09:33 | disposition home or self-care (01) ==
LOC: HO.HWS 09:05
PROVIDERS: PCP Internal Medicine; Visit Provider Advanced Practice Midwife
DX: Z30.42 Encounter for surveillance of injectable contraceptive (principal)

== ENCOUNTER → 2024-01-08 09:05 | Outpatient (BNVA) | payer OTHER, SELFPAY | PROVIDERS: PCP Internal Medicine; Visit Provider Advanced Practice Midwife | DX: Z30.42 Encounter for surveillance of injectable contraceptive (principal) | CPT/HCPCS: 96372; 99211; J1050 ==

== ENCOUNTER 2024-03-30 12:57 | Outpatient (AMB) | payer OTHER, SELFPAY ==
[2024-03-30 13:40] VITALS: BMI 34.3
--- NOTE | 2024-03-30 13:40 | AM.OFFVISNUR ---
Intake Vital Signs 03/30/24 13:40 Height 5 ft 7 in Weight 99.365 kg BMI 34.3 Intake Visit Reasons: Depo Allergies Latex, Natural Rubber Allergy (Intermediate, Verified 11/19/23 11:53) skin peeling azithromycin [Azithromycin] Allergy (Unknown, Verified 11/19/23 11:53) RASH doxycycline [Doxycycline] Allergy (Unknown, Verified 11/19/23 11:53) RASH Iodinated Contrast Media [IV CONTRAST] Allergy (Unknown, Verified 11/19/23 11:53) HIVES sulfamethoxazole Allergy (Unknown, Verified 11/19/23 11:53) unknown Sulfamethoxazole Allergy (Unknown, Uncoded 11/19/23 11:53) rash Nursing Note Karen is here for her scheduled Depo-Provera inj. She has no complaints with her medication. Pt tolerated her inj well. Discussed with Karen that she cannot continue to get her Depo-provera inj unless she comes in for her AG exam. Last was 09/03/22. Pt reports she was scheduled went to [address] [place] [address] and got ''freaked out'' Pt was advised to be seen here at [facility], and says she was told''only a male DR here. Pt was informed that Margie Logan CNM works here and she can make appt with her, and should be prior to her next inj. Pt verbs understanding. 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 Office Procedures Depo Questionnaire If YES to any of the following questions, please consult a provider. Date of last injection: 01/08/24 Date of last gynecology exam: 09/03/22 Menstrual pattern since last injection has been: Not Applicable Irregular bleeding?: No Breast lumps or other breast changes?: No Changes in weight or appetite?: No Depression or changes in mood?: No Abnormal hair growth or loss?: No Skin problems (rash, acne, discoloration)?: No Pain at the injection site?: No Headaches?: No Nervousness?: No Abdominal pain or cramping?: No Dizziness or nausea?: No Fatigue or weakness?: No Decrease in sexual drive?: No Chest pain or shortness of breath?: No Swelling in arms or legs?: No Form completed by?: Roe Ewing LPN Office Meds Depo-Provera 150 mg/mL intramuscular syringe Performing Provider: Conchis Esteban CNM [place] [facility] [place] [facility] Administered by: Mandy Ewing LPN on 03/30/24 13:41 Dose Route Admin Location Dispensed Lot Number Expiration Date [facility] Home Sales Consultant 150 mg IM left deltoid 1 mL [id number] 05/18/26 35446-243-49 [facility] Coding Level of Care Code Established Pt Est Pt Level 1 (13448) Patient Type Established History Problem Focused Exam Problem Focused Medical Decision Making Straight Forward Time Spent (min) 25 Assessment & Plan Assessment & Plan Orders: Orders AMB Medroxyprogesterone Injection Patient Supplied Today Z30.42 - Encounter for surveillance of injectable contraceptive Medications: New Depo-Provera (medroxyprogesterone) 150 mg IM ONCE 1 mL 0RF NS Z30.42 - Encounter for surveillance of injectable contraceptive
== END 2024-03-30 13:03 | disposition home or self-care (01) ==
LOC: HO.HWS 12:57
PROVIDERS: PCP Internal Medicine; Visit Provider Advanced Practice Midwife
DX: Z30.42 Encounter for surveillance of injectable contraceptive (principal)

== ENCOUNTER → 2024-03-30 12:57 | Outpatient (BNVA) | payer OTHER, SELFPAY | PROVIDERS: PCP Internal Medicine; Visit Provider Advanced Practice Midwife | DX: Z30.42 Encounter for surveillance of injectable contraceptive (principal) | CPT/HCPCS: 96372; 99211; J1050 ==

== ENCOUNTER 2025-01-13 11:21 | Outpatient (AMB) | payer OTHER, SELFPAY ==
--- NOTE | 2025-01-13 11:12 | A.OFFPC_ITS ---
Intake Visit Reasons: depression, no SI/HI Intake Note: Pt is having a telehealth visit c/o depression/Mom just on 12/23/24 Allergies Latex, Natural Rubber Allergy (Intermediate, Verified 01/13/25 11:15) skin peeling azithromycin [Azithromycin] Allergy (Unknown, Verified 01/13/25 11:15) RASH doxycycline [Doxycycline] Allergy (Unknown, Verified 01/13/25 11:15) RASH Iodinated Contrast Media [IV CONTRAST] Allergy (Unknown, Verified 01/13/25 11:15) HIVES sulfamethoxazole Allergy (Unknown, Verified 01/13/25 11:15) unknown Sulfamethoxazole Allergy (Unknown, Uncoded 01/13/25 11:15) rash Medication List - Last Reconciled 01/13/25 by Jamee Frederick MD aspirin (Adult Low Dose Aspirin) 81 mg PO DAILY loratadine (Allergy Relief (loratadine)) 10 mg PO DAILY PRN lorazepam 0.5 mg PO DAILY PRN Tobacco use date assessed: 01/13/25 Dental Screening Dental Screen Date: 01/13/25 Did you have a dental visit in the last 12 months?: Yes Did you have a dental problem in the last 6 months where you did not have access to dental care?: No Was dental information given to patient?: Patient has dentist HPI depression, no SI/HI HPI Details 44-year-old lady here today for follow-u p. Patient has been complaining of depressed mood, and anxiety attacks. She has been having a lot of stress lately, with mom recently passing away 12/23/2024 after a torre with metastatic lung cancer. She also states that she was fired from her job at the same time . She has been seeing a therapist which has been helping but would like to see if she can get a prescription refill on her lorazepam which he takes only as needed for acute anxiety attacks.. Over the last 5 days she also has been having frontal headaches, with nasal congestion and lightheadedness. Patient states that it hurts to do on the left side. Denies any accompanying fever or chills. [facility] Medical History (Updated 01/14/25 @ 00:46 by Jamee Frederick MD) Grief reaction Initiation of Depo Provera Menorrhagia with regular cycle Elevated antinuclear antibody (BROOKE) level Fatigue Family history of thyroid disorder Hx of abnormal cervical Pap smear Influenza vaccination declined Cholelithiasis Anxiety disorder Toro's thyroiditis Surgical History (Updated 11/19/23 @ 12:55 by Jamee Frederick MD) History of loop electrical excision procedure (LEEP) History of tonsillectomy History of laparoscopic cholecystectomy Family History (Updated 01/14/25 @ 00:41 by Jamee Frederick MD) Father Diabetes mellitus HTN (hypertension) CAD (coronary artery disease) CVD (cardiovascular disease) Asthma Myocardial infarction Mother Prediabetes Goiter Stroke Lung cancer Brother No problems noted. Daughter No problems noted. Daughter Mental health disorder Son No problems noted. Son No problems noted. Son No problems noted. Son No problems noted. Paternal Grandmother Breast cancer Ovarian cancer Maternal Grandmother Breast cancer Family/Other Colon cancer Social History Housing: House Alcohol intake: never Patient Tobacco Use Status: Never used Tobacco e-Cigarette/Vaping Use: Never Used service: No Current occupational status: employed Gender identity: Female Cognitive needs: No Hearing needs: No Vision needs: No Female Reproductive History Menstrual Age of Menarche: 13 Questionnaire PHQ-9 Over the last 2 weeks, how often have you been bothered by any of the following problems? 1. Little interest or pleasure in doing things: more than half the days 2. Feeling down, depressed, or hopeless: nearly every day 3. Trouble falling or staying asleep, or sleeping too much: nearly every day 4. Feeling tired or having little energy: nearly every day 5. Poor appetite or overeating: several days 6. Feeling bad about yourself - or that you are a failure or have let yourself or your family down: nearly every day 7. Trouble concentrating on things, such as reading the newspaper or watching television: more than half the days 8. Moving or speaking so slowly that other people could have noticed. Or the opposite - being so fidgety or restless that you have been moving around a lot more than usual: not at all 9. Thoughts that you would be better off or of hurting yourself in some way: not at all Total score: 17 Depression Screening Interpretation: Positive Depression Screening Follow-up: Existing condition Depression Screening Done: Yes Source: Developed by Drs. Ben Hicks, Daily Abreu, Bernardo Sena and colleagues, with an educational chinedu from [employer]. Thrive Questionnaire Date Thrive assessed: 01/13/25 I am a: Patient What is your living situation today?: I have a steady place to live Within the past 12 months, did the food you bought not last and you didn't have the money to get more?: Never true Within the past 12 months, did you worry whether your food would run out before you got money to buy more?: Never true Do you have trouble paying for medicines?: No Do you have trouble getting transportation to medical appointments?: No Do you have trouble paying your heating and electricity bill?: No Do you have trouble taking care of your child, family member or friend?: No Do you have trouble with day-to-day activities such as bathing, preparing meals, shopping, managing finances, etc.?: No Are you currently unemployed and looking for a job?: No Are you interested in more education?: No THRIVE Score: 0 AUDIT C Alcohol Use Questionnaire (AUDIT-C) 1. How often do you have a drink containing alcohol?: Never Total Score: 0 VIV-7 AMB Questionnaire VIV-7 Date VIV - 7 assessed: 01/13/25 Feeling nervous, anxious, or on edge: 3 = Nearly every day Not being able to stop or control worryin = More than half the days Worrying too much about different things: 2 = More than half the days Trouble relaxin = Nearly every day Being so restless that it is hard to sit still: 0 = Not at all Becoming easily annoyed or irritable: 3 = Nearly every day Feeling afraid as if something awful might happen: 2 = More than half the days Total VIV-7 score (0-4 normal; 5-9 mild; 10-14 moderate; 15-21 severe): 15 Source: Developed by Drs. Ben Hicks, Bernardo Bryson and colleagues, with an educational chinedu from [employer]. VIV-7 Assessment Billing VIV-7 Assessment Tool: VIV-7 Assessment 76571 Review of Systems Const All systems reviewed & are unremarkable except as noted in HPI and below Physical exam (Primary Care) Tobacco/Smoking Status: Tobacco use Status Tobacco use date assessed 01/13/25 01/13/25 11:17 Patient Tobacco Use Status Never used Tobacco 01/13/25 11:13 e-Cigarette/Vaping Use Never Used 01/13/25 11:13 PHQ-9: PHQ-9 Score PHQ-9: Total score 17 01/13/25 11:49 Depression Screening Interpretation: Positive Depression Screening Follow-up: Existing condition Thrive Assessment: Date of Thrive Assessment Date Thrive assessed 01/13/25 01/13/25 11:21 Telehealth Telehealth Telehealth Platform: [employer] Location of provider rendering services: practice address Location of patient: address on file Patient Identification confirmed using: Name, : Yes Telehealth method: video Patient verbally consented to treatment: Yes Patient verbally consented to billing insurance company: Yes Patient informed of any privacy concerns related to visit: Yes Minutes spent on Phone/Video with Pt.: 15 Coding Level of Care Code Tele Est Pt Level 4 (08931) Diagnoses Acute recurrent ethmoidal sinusitis J01.21 Sinusitis location: ethmoidal Recurrence: recurrent Grief reaction F43.21 Additional Codes VIV-7 Assessment Billing - VIV-7 Assessment Tool: VIV-7 Assessment [id number] ([id number]) Assessment & Plan Assessment & Plan (1) Acute sinusitis: Code(s): J01.90 - Acute sinusitis, unspecified Category: Medical Qualifiers: Sinusitis location: ethmoidal Recurrence: recurrent Qualified Code(s): J01.21 - Acute recurrent ethmoidal sinusitis Plan: Empirically started on Augmentin 875-125 mg per tablet take 1 tablet every 12 hours for 10 days. She was also given a prescription for Diflucan just in case she develops any yeast infection from taking the antibiotic. (2) Grief reaction: Code(s): F43.21 - Adjustment disorder with depressed mood Category: Medical Plan: Advised to continue seeing her therapist regularly, declines starting any new medication but would like to see if she can get a refill on her lorazepam which was given. Patient advised not to take it on a regular basis, as it is habit forming Medications: New fluconazole may repeat second dose 72 hrs after first dose if symptoms persist 150 mg PO Q3D PRN 2 tabs 0RF Yeast infection Changed From amoxicillin-pot clavulanate 875-125 mg 1 tab PO Q12H 5 days 10 tabs 0RF To amoxicillin-pot clavulanate 875-125 mg 1 tab PO Q12H 10 days 20 tabs 0RF Refilled lorazepam 0.5 mg PO DAILY PRN 30 tabs 0RF anxiety
== END 2025-01-13 12:03 | disposition home or self-care (01) ==
LOC: HO.HMCC 11:21
PROVIDERS: PCP Internal Medicine; Visit Provider Internal Medicine
DX: J01.21 Acute recurrent ethmoidal sinusitis (principal); F43.21 Adjustment disorder with depressed mood

== ENCOUNTER → 2025-01-13 11:21 | Outpatient (BNVA) | payer OTHER, SELFPAY | PROVIDERS: PCP Internal Medicine; Visit Provider Internal Medicine | DX: F43.21 Adjustment disorder with depressed mood (principal); F41.9 Anxiety disorder, unspecified; F43.9 Reaction to severe stress, unspecified; R51.9 Headache, unspecified; J01.21 Acute recurrent ethmoidal sinusitis; Z63.4 Disappearance and death of family member | CPT/HCPCS: 96127 ==

== ENCOUNTER 2025-08-02 09:18 | Outpatient (AMB) | payer OTHER, SELFPAY ==
[2025-08-02 09:25] VITALS: BP 110/74; PULSE 71; TEMP 36.7; O2SAT 99; BMI 34.8
--- NOTE | 2025-08-02 09:25 | MHC.OFFWIV ---
Intake Vital Signs 08/02/25 09:25 Height 5 ft 7 in Weight 222 lb BMI 34.8 BP 110/74 Blood Pressure Location Rt brachial Position Sitting Pulse 71 Pulse Source Pulse Oximeter Temp 98.1 F Temp Source Oral Pulse Oximetry (%) 99 Oxygen Delivery Method Room Air Intake Visit Reasons: EP Right hand rusted staple under finger nail Patient Tobacco Use Status: Never used Tobacco Allergies Latex, Natural Rubber Allergy (Intermediate, Verified 08/02/25 09:31) skin peeling azithromycin (Azithromycin) Allergy (Unknown, Verified 08/02/25 09:31) RASH doxycycline (Doxycycline) Allergy (Unknown, Verified 08/02/25 09:31) RASH Iodinated Contrast Media (IV CONTRAST) Allergy (Unknown, Verified 08/02/25 09:31) HIVES sulfamethoxazole Allergy (Unknown, Verified 08/02/25 09:31) unknown Sulfamethoxazole Allergy (Unknown, Uncoded 01/13/25 11:15) rash HPI HPI Comments History of Present Illness Details History of Present Illness - The patient is a 44-year-old female presenting with potential tetanus exposure. - The patient sustained an injury from a maged staple on the right 4th digit while pulling up an old dirty rug, which occurred yesterday. - The staple was removed, and the wound was cleaned. The patient also sustained a minor cut from a razor blade left open in a drawer, both injuries occurring on the right hand. - The patient cleaned the wounds, which appear to be healing well, although mild soreness is noted. - Discussion about updating tetanus vaccination due to the nature of the injury involving a maged staple. Last Tdap 2018 so 8 years old. Physical Exam General: Cooperative, healthy appearing, comfortable, no acute distress and well developed Orientation: Patient oriented x3 Limitations: No limitations Head: Normal to inspection Ears: Hearing grossly normal bilaterally Nose: Normal External nose present Face and sinus: Normal facial exam Eyes: Appearance normal, both eyes and all related structures Neck: Normal visual inspection and Yes full ROM Respiratory: Normal respiratory effort and able to speak in complete sentences. Skin: No rashes or lesions noted Neuro: Patient oriented x3 Extremities: Normal to inspection, except for minor wounds on the right hand from a maged staple and a razor blade, cleaned and healing well. Review of Systems - Musculoskeletal: Reports mild soreness in the right hand All systems reviewed and are unremarkable except as noted in HPI [facility] Medical History (Updated 08/02/25 @ 09:58 by Loan Cason PA-C) Grief reaction Initiation of Depo Provera Menorrhagia with regular cycle Elevated antinuclear antibody (BROOKE) level Fatigue Family history of thyroid disorder Hx of abnormal cervical Pap smear Influenza vaccination declined Cholelithiasis Anxiety disorder Toro's thyroiditis Surgical History (Updated 11/19/23 @ 12:55 by Jamee Frederick MD) History of loop electrical excision procedure (LEEP) History of tonsillectomy History of laparoscopic cholecystectomy Family History (Updated 01/14/25 @ 00:41 by Jamee Frederick MD) Father Diabetes mellitus HTN (hypertension) CAD (coronary artery disease) CVD (cardiovascular disease) Asthma Myocardial infarction Mother Prediabetes Goiter Stroke Lung cancer Brother No problems noted. Daughter No problems noted. Daughter Mental health disorder Son No problems noted. Son No problems noted. Son No problems noted. Son No problems noted. Paternal Grandmother Breast cancer Ovarian cancer Maternal Grandmother Breast cancer Family/Other Colon cancer Social History Housing: House Alcohol intake: never Patient Tobacco Use Status: Never used Tobacco e-Cigarette/Vaping Use: Never Used service: No Current occupational status: employed Gender identity: Female Cognitive needs: No Hearing needs: No Vision needs: No Female Reproductive History Menstrual Age of Menarche: 13 Physical Exam Vital Signs: Last Vital Signs Temp 98.1 F 08/02/25 09:25 Pulse 71 08/02/25 09:25 BP 110/74 08/02/25 09:25 Pulse Ox 99 08/02/25 09:25 Oxygen Delivery Method Room Air 08/02/25 09:25 BMI result Body Mass Index 34.8 Immunizations Boostrix Tdap 2.5 Lf unit-8 mcg-5 Lf/0.5 mL intramuscular syringe Performing Provider: Loan Cason PA-C Performing Location: [facility] Administered by: Anne Marie Connor CMA on 08/02/25 10:05 Dose Route Admin Location Dispensed Lot Number Expiration Date [facility] [employer] Rub[employer] 0.5 mL IM Right Deltoid 0.5 mL [id number] 06/17/27 55558-021-05 [employer] #[id number] Total Dispensed Waste 0.5 mL 0 % VIS Given Date VIS Provided VIS Publication Date 08/02/25 Single Vaccine 21 Eligibility Eligibility Date Funding Source Not [facility] Eligible 08/02/25 Private Assessment & Plan Assessment & Plan (1) Puncture wound, hand: Code(s): S61.439A - Puncture wound without foreign body of unspecified hand, initial encounter Qualifiers: Encounter type: initial encounter Foreign body presence: without foreign body Laterality: right Qualified Code(s): S61.431A - Puncture wound without foreign body of right hand, initial encounter Plan: Plan Patient was informed and verbally consented to the use of an ambient scribe for clinic note documentation during this visit. - Administer Tdap vaccine due to potential exposure from a maged, soiled staple and possible soil on razor blade. Last Tdap 8 years old, will update today. . Orders: Orders TDaP Immunization Today S61.439A - Puncture wound without foreign body of unspecified hand, initial encounter Coding Level of Care Code Est Pt Level 3 (44798) Diagnoses Puncture wound of right hand without foreign body, initial encounter S61.431A Encounter type: initial encounter Foreign body presence: without foreign body Laterality: right
--- NOTE | 2025-08-02 09:31 | MHC.OFFWIV ---
Intake Vital Signs 08/02/25 09:25 Height 5 ft 7 in Weight 222 lb BMI 34.8 BP 110/74 Blood Pressure Location Rt brachial Position Sitting Pulse 71 Pulse Source Pulse Oximeter Temp 98.1 F Temp Source Oral Pulse Oximetry (%) 99 Oxygen Delivery Method Room Air Intake Visit Reasons: EP Right hand rusted staple under finger nail Patient Tobacco Use Status: Never used Tobacco Allergies Latex, Natural Rubber Allergy (Intermediate, Verified 08/02/25 09:31) skin peeling azithromycin (Azithromycin) Allergy (Unknown, Verified 08/02/25 09:31) RASH doxycycline (Doxycycline) Allergy (Unknown, Verified 08/02/25 09:31) RASH Iodinated Contrast Media (IV CONTRAST) Allergy (Unknown, Verified 08/02/25 09:31) HIVES sulfamethoxazole Allergy (Unknown, Verified 08/02/25 09:31) unknown Sulfamethoxazole Allergy (Unknown, Uncoded 01/13/25 11:15) rash Do you need a note to return to daycare/school/sports/work: No PFSH Medical History (Updated 01/14/25 @ 00:46 by Jamee Frederick MD) Grief reaction Initiation of Depo Provera Menorrhagia with regular cycle Elevated antinuclear antibody (BROOKE) level Fatigue Family history of thyroid disorder Hx of abnormal cervical Pap smear Influenza vaccination declined Cholelithiasis Anxiety disorder Toro's thyroiditis Surgical History (Updated 11/19/23 @ 12:55 by Jamee Frederick MD) History of loop electrical excision procedure (LEEP) History of tonsillectomy History of laparoscopic cholecystectomy Family History (Updated 01/14/25 @ 00:41 by Jamee Frederick MD) Father Diabetes mellitus HTN (hypertension) CAD (coronary artery disease) CVD (cardiovascular disease) Asthma Myocardial infarction Mother Prediabetes Goiter Stroke Lung cancer Brother No problems noted. Daughter No problems noted. Daughter Mental health disorder Son No problems noted. Son No problems noted. Son No problems noted. Son No problems noted. Paternal Grandmother Breast cancer Ovarian cancer Maternal Grandmother Breast cancer Family/Other Colon cancer Social History Housing: House Alcohol intake: never Patient Tobacco Use Status: Never used Tobacco e-Cigarette/Vaping Use: Never Used service: No Current occupational status: employed Gender identity: Female Cognitive needs: No Hearing needs: No Vision needs: No Female Reproductive History Menstrual Age of Menarche: 13 Physical Exam Vital Signs: Last Vital Signs Pulse 71 08/02/25 09:25 Pulse Ox 99 08/02/25 09:25 Oxygen Delivery Method Room Air 08/02/25 09:25 BMI result Body Mass Index 34.8 Coding
--- OUTSIDE RECORDS SUMMARY | 2025-08-02 10:23 | XMS_ITS | Clinical Summary ---
Author Organization [facility] Address [address] [place] [address] Phone Care Team Providers Care Psychologist Experimental Name Role Phone Unavailable Primary Care Provider Unavailabl e Immunizations Immunization Administration Dates Next Due DTP 12/20/1985, 4,03/22/1982,1981,1981 Hep B, ped/adol 12/09/1996,07/06/1996,06/06/1996 Hib (HbOC) 12/20/1985 MMR 08/27/1993,11/20/1982 OPV 12/20/1985, 4,03/22/1982,1981,1981 Td (adult) (MBL), 2 Lf tetan us toxoid, PF, adsorbed 05/12/1994 Social History Tobacco Use Types Packs/Day Years Used Date Smoking Tobacco: Never Assessed Comments Unknown Sex and Gender Information Value Date Recorded Sex Assigned at Not on file Legal Sex Female 4:32 PM EDT Gender Identity Not on file Sexual Orientation Not on file Plan of Treatment Health Maintenance Due Date Last Done Comments DTaP,Tdap,and Td Vaccines (6 - Tdap) 05/13/1994 05/12/1994, 12/20/1985, 02/16/1984, Additional history exists Varicella Vaccines (1 of 2 - 13+ 2-dose series) 1994 HPV Vaccines (1 - 3-dose SCDM series) 2008 Influenza Vaccines (#1) 2025 COVID-19 Vaccine ( - season) 2025 HIB Vaccines Completed 12/20/1985 IPV Vaccines Completed 12/20/1985, 01/19, 03/22/1982, Additional history exists MMR Vaccines Completed 08/27/1993, 11/20/1982 Hepatitis B Vaccines Completed 12/09/1996, 07/06/1996, 06/06/1996 Hepatitis A Vaccines Aged Out No long er eligible based on patient's age to complete this topic Men B Vaccine Aged Out No longer elig ible based on patient's age to complete this topic Meningococcal Vaccine Aged Out No dilma mariama eligible based on patient's age to complete this topic Pneumococcal Vaccine Aged Out No long er eligible based on patient's age to complete this topic
--- OUTSIDE RECORDS SUMMARY | 2025-08-02 10:23 | XMS_ITS | Clinical Summary ---
Author Organization [facility] Address [address] [place] [phone] Phone Care Team Providers Care Client Retention Specialist Name Role Phone Jamee Frederick MD Primary Care Provider Allergies Active Allergy Reactions Criticality Noted Date Comments Azithromycin 11/20/2023 Doxycycline Calcium 11/20/2023 Latex 11/20/2023 Sulfa (Sulfonamide Antibiotics) 11/2023 Medications LORazepam (ATIVAN) 0.5 MG tablet Take 0.5 mg by mouth as needed. 4 Active loratadine (CLARITIN) 10 mg tablet Take 10 mg by mouth as needed. 3 Active SALINE NASAL 0.65 % nasal spray 1 SPRAY INTRANASALLY 2 TIMES A DAY NEEDED FOR DRY NASAL PASSAGES 3 Active aspirin 81 MG EC tablet Take 81 mg by mouth daily. Active medroxyPROGESTE Leonid (DEPO-PROVERA) 150 mg/mL injection Inject 150 mg into the muscle every 3 (three) months. 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 Unfortunately I do not know how big the thyroid nodules were so we should repeat the ultrasound to see if there is anything that requires biopsy. Do the ultrasound at [facility]. Toro's thyroiditis 11/20/2023 Assessment & Plan (11/20/2023 11:36 AM EST): The patient has Toro's thyroiditis. This can result in hypothyroidism but if the TSH is in the normal reference range it should not cause the symptoms that she is having so ongoing to evaluate for other conditions. Chronic fatigue 11/20/2023 Assessment & Plan (11/20/2023 11:37 AM EST): Complains of fatigue, weight gain multiple other symptoms which she has at home can be associated with hypothyroidism the problem is that she is not technically hypothyroid so they must be related or due to some other issue. She has fibromyalgia. Which can cause symptoms like these. She has question of lupus which has not been officially diagnosed. I will check comprehensive CBC to see if I find any abnormalities also requesting ESR for inflammatory disorders, magnesium,. I also will check endocrine disorders so I will request cortisol, IGF-I PTH all of this has to be done fasting. Hair loss 11/20/2023 Assessment & Plan (11/20/2023 11:36 AM EST): I have requested biochemical workup for hair loss. Family History Medical History Relation Comments Asthma Father Coronary artery disease Father Diabetes Father Hypertension Father COPD Mother Prediabetes Mother Stroke Mother Relation Status Comments Father Alive Mother Alive Social History Tobacco Use Types Packs/Day Years Used Date Smoking Tobacco: Never Smokeless Tobacco: Never Alcohol Use Standard Drinks/Week Comments Never 0 (1 standard drink = 0.6 oz pur e alcohol) Education Answer Date Recorded Are you interested in more education? Not on dada e 02/14/2023 Are you concerned about learning? Not on file 02/14/2023 No 02/14/2023 No 02/14/2023 Digital Access Answer Date Recorded No 03/15/2023 No 03/15/2023 Reliable internet access at home? Not on file 03/15/2023 Device with a working camera? Not on file Comments Unknown Sex and Gender Information Value Date Recorded Sex Assigned at Not on file Legal Sex Female 11:31 AM EST Gender Identity Not on file Sexual Orientation Not on file Last Filed Vital Signs Vital Sign Reading Time Taken Comments Blood Pressure 122/74 11/20/2023 10:48 AM EST Pulse 84 11/20/2023 10:48 AM EST Temperature - - Respiratory Rate - - Oxygen Saturation 98% 11/20/2023 10:48 AM EST Inhaled Oxygen Concentration - - Weight 99.8 kg (220 lb) 11/20/2023 10:48 AM EST Height 168.3 cm (5' 6.25 ) 11/20/2023 10:[address] Body Mass Index 35.24 11/20/2023 10:48 AM EST Plan of Treatment Health Maintenance Due Date Last Done Comments Adult Td,Tdap Booster 1980 DEPRESSION SCREENING 1993 HEPATITIS C SCREENING 1999 HIV ONE-TIME SCREENING (18-6 5 YEARS) 1999 PAP SMEAR 2002 SCREENING FOR DIABETES 2016 MAMMOGRAM 2021 INFLUENZA VACCINE (#1) 2025 COVID-19 VACCINE (2024-2 6 season) 2025 SMOKING STATUS SCREENING (On ce After 26 Yrs) Completed 11/20/2023 HEPATITIS A VACCINES Aged Out No long er eligible based on patient's age to complete this topic HIB VACCINES Aged Out No longer eligi ble based on patient's age to complete this topic MENINGOCOCCAL VACCINES (ACWY) Aged Out No longer eligible based on patient's age to complete this topic MENINGOCOCCAL VACCINES (B) Aged Out N o longer eligible based on patient's age to complete this topic PNEUMOCOCCAL VACCINES (0-49 years) Aged Out No longer eligible based on patient's age to complete this topic Medical Devices Not on file [place] [address] [place] [address] [place] [address] [address] [place] [address] [place] [address] [place] [address] A[place] [facility] Care Teams Client Retention Specialist Relationship Specialty Start Date End Date Jamee Frederick MD [address] [place] [address] PCP - General Internal Medicine 12/23/22 Additional Source Comments The information contained in this document represents components of the legal health record. It is not the complete legal health record.[facility]
== END 2025-08-02 10:09 | disposition home or self-care (01) ==
PROVIDERS: PCP Internal Medicine; Visit Provider Physician Assistant
DX: S61.431A Puncture wound without foreign body of right hand, initial encounter (principal)

== ENCOUNTER → 2025-08-02 09:18 | Outpatient (BNVA) | payer OTHER, SELFPAY | PROVIDERS: PCP Internal Medicine; Visit Provider Physician Assistant | DX: S61.431A Puncture wound without foreign body of right hand, initial encounter (principal); S61.411A Laceration without foreign body of right hand, initial encounter; W26.8XXA Contact with other sharp object(s), not elsewhere classified, initial encounter; Y93.9 Activity, unspecified; Y92.9 Unspecified place or not applicable; Y99.9 Unspecified external cause status; Z23 Encounter for immunization | CPT/HCPCS: 90471; 90715; 99212 ==

== ENCOUNTER 2025-08-04 09:19 | Outpatient (REF) | payer OTHER, SELFPAY ==
[2025-08-04 14:10] LABS: Cholesterol 148 mg/dL (<200); HDL Cholesterol 42 mg/dL (>40); Triglycerides 130 mg/dL (<150)
== END 2025-08-04 09:20 | disposition home or self-care (01) ==
LOC: HO.HMGCLDS 09:19
PROVIDERS: PCP Internal Medicine; Visit Provider Internal Medicine
DX: E06.3 Autoimmune thyroiditis (principal); R53.83 Other fatigue; E66.01 Morbid (severe) obesity due to excess calories; E55.9 Vitamin D deficiency, unspecified; Z13.220 Encounter for screening for lipoid disorders; Z13.1 Encounter for screening for diabetes mellitus
CPT/HCPCS: 36415; 80061; 82306; 82947; 84443; 86376

== ENCOUNTER 2025-08-23 15:16 | Outpatient (AMB) | payer OTHER, SELFPAY ==
[2025-08-23 15:25] VITALS: BP 120/66; PULSE 81; RESP 16; TEMP 36.9; O2SAT 99; BMI 34.6
--- NOTE | 2025-08-23 15:25 | MHC.PC.OV ---
Vital Signs 08/23/25 15:25 Height 5 ft 7 in Weight 221 lb BMI 34.6 BP 120/66 Blood Pressure Location Rt brachial Position Sitting Respiration 16 Pulse 81 Pulse Source Pulse Oximeter Temp 98.4 F Temp Source Oral Pulse Oximetry (%) 99 Oxygen Delivery Method Room Air Intake Visit Reasons: PE Intake Note: Pt is here today for her PE: Last mammogram 07/03/23, papsmear 09/04/22 X Ray Control Equipment Repairer Required: No Allergies Latex, Natural Rubber Allergy (Intermediate, Verified 08/23/25 15:37) skin peeling azithromycin (Azithromycin) Allergy (Unknown, Verified 08/23/25 15:37) RASH doxycycline (Doxycycline) Allergy (Unknown, Verified 08/23/25 15:37) RASH Iodinated Contrast Media (IV CONTRAST) Allergy (Unknown, Verified 08/23/25 15:37) HIVES sulfamethoxazole Allergy (Unknown, Verified 08/23/25 15:37) unknown Sulfamethoxazole Allergy (Unknown, Uncoded 08/23/25 15:37) rash Medication List - Last Reconciled 08/23/25 by Jamee Frederick MD aspirin (Adult Low Dose Aspirin) 81 mg PO DAILY loratadine (Allergy Relief (loratadine)) 10 mg PO DAILY PRN lorazepam 0.5 mg PO DAILY PRN Tobacco use date assessed: 08/23/25 Dental Screening Dental Screen Date: 08/23/25 Did you have a dental visit in the last 12 months?: Yes Did you have a dental problem in the last 6 months where you did not have access to dental care?: No Was dental information given to patient?: Patient has dentist HPI PE HPI Details 45-year-old lady with history of Toro's thyroiditis, currently euthyroid, obesity, anxiety disorder here today for her physical exam. Overdue for her screening mammogram, last done in 2022 with negative findings. Her last cervical cancer screening was done in 2021 with benign findings, currently being seen at [facility] Medical History (Updated 08/23/25 @ 15:56 by Jamee Frederick MD) Lateral epicondylitis Grief reaction Initiation of Depo Provera Menorrhagia with regular cycle Elevated antinuclear antibody (BROOKE) level Fatigue Family history of thyroid disorder Hx of abnormal cervical Pap smear Influenza vaccination declined Cholelithiasis Anxiety disorder Toro's thyroiditis Surgical History History of loop electrical excision procedure (LEEP) History of tonsillectomy History of laparoscopic cholecystectomy Family History Father Diabetes mellitus HTN (hypertension) CAD (coronary artery disease) CVD (cardiovascular disease) Asthma Myocardial infarction Mother Prediabetes Goiter Stroke Lung cancer Brother No problems noted. Daughter No problems noted. Daughter Mental health disorder Son No problems noted. Son No problems noted. Son No problems noted. Son No problems noted. Paternal Grandmother Breast cancer Ovarian cancer Maternal Grandmother Breast cancer Family/Other Colon cancer Social History Housing: House Alcohol intake: never Patient Tobacco Use Status: Never used Tobacco e-Cigarette/Vaping Use: Never Used service: No Current occupational status: employed Gender identity: Female Cognitive needs: No Hearing needs: No Vision needs: No Female Reproductive History Menstrual Age of Menarche: 13 Questionnaire PHQ-9 Over the last 2 weeks, how often have you been bothered by any of the following problems? 1. Little interest or pleasure in doing things: not at all 2. Feeling down, depressed, or hopeless: not at all 3. Trouble falling or staying asleep, or sleeping too much: not at all 4. Feeling tired or having little energy: several days 5. Poor appetite or overeating: several days 6. Feeling bad about yourself - or that you are a failure or have let yourself or your family down: not at all 7. Trouble concentrating on things, such as reading the newspaper or watching television: several days 8. Moving or speaking so slowly that other people could have noticed. Or the opposite - being so fidgety or restless that you have been moving around a lot more than usual: not at all 9. Thoughts that you would be better off or of hurting yourself in some way: not at all Total score: 3 Depression Screening Interpretation: Negative Depression Screening Done: Yes Source: Developed by Drs. Ben Hicks, Daily Abreu, Bernardo Sena and colleagues, with an educational chinedu from [employer]. Thrive Questionnaire Date Thrive assessed: 01/13/25 I am a: Patient What is your living situation today?: I have a steady place to live Within the past 12 months, did the food you bought not last and you didn't have the money to get more?: Never true Within the past 12 months, did you worry whether your food would run out before you got money to buy more?: Never true Do you have trouble paying for medicines?: No Do you have trouble getting transportation to medical appointments?: No Do you have trouble paying your heating and electricity bill?: No Do you have trouble taking care of your child, family member or friend?: No Do you have trouble with day-to-day activities such as bathing, preparing meals, shopping, managing finances, etc.?: No Are you currently unemployed and looking for a job?: No Are you interested in more education?: No Please select the resources that you would like help with: None Currently or been in a relationship where the following occur: I choose not to answer THRIVE Score: 0 AUDIT C Alcohol Use Questionnaire (AUDIT-C) 1. How often do you have a drink containing alcohol?: Never Total Score: 0 VIV-7 AMB Questionnaire VIV-7 Date VIV - 7 assessed: 08/23/25 Feeling nervous, anxious, or on edge: 1 = Several days Not being able to stop or control worryin = Not at all Worrying too much about different things: 1 = Several days Trouble relaxin = Not at all Being so restless that it is hard to sit still: 0 = Not at all Becoming easily annoyed or irritable: 1 = Several days Feeling afraid as if something awful might happen: 0 = Not at all Total VIV-7 score (0-4 normal; 5-9 mild; 10-14 moderate; 15-21 severe): 3 Source: Developed by Drs. Ben Hicks, Daily Abreu, Bernardo Sena and colleagues, with an educational chinedu from [employer]. Review of Systems Const Reports as per HPI Eyes Denies change in vision ENT Reports no additional complaints Card Denies chest pain, Denies irregular heart rhythm, Denies lightheadedness and Denies dyspnea Resp Denies chest congestion, Denies cough and Denies dyspnea GI Reports no additional complaints Reports no additional complaints and Denies nipple discharge Musc Reports myalgias, Reports arthralgias, Reports joint swelling and Reports stiffness Skin/Breast Denies breast pain, Denies breast mass, Denies alopecia, Denies nipple discharge and Denies rash Neuro Reports no additional complaints Psych Reports as per HPI Shaun/Lymph Reports no additional complaints Aller/Immun Reports no additional complaints Physical exam (Primary Care) Vital Signs: Last Vital Signs Temp 98.4 F 08/23/25 15:25 Pulse 81 08/23/25 15:25 Resp 16 08/23/25 15:25 BP 120/66 08/23/25 15:25 Pulse Ox 99 08/23/25 15:25 Oxygen Delivery Method Room Air 08/23/25 15:25 BMI result Body Mass Index 34.6 BMI Assessment/Plan discussion: High BMI High, discussed plan: lifestyle, weight reduction, dietary and physical activity Tobacco/Smoking Status: Tobacco use Status Tobacco use date assessed 08/23/25 08/23/25 15:31 Patient Tobacco Use Status Never used Tobacco 08/23/25 15:31 e-Cigarette/Vaping Use Never Used 08/23/25 15:31 PHQ-9: PHQ-9 Score PHQ-9: Total score 7 08/23/25 15:38 Depression Screening Interpretation: Negative Thrive Assessment: Date of Thrive Assessment Date Thrive assessed 01/13/25 08/23/25 15:31 Currently or been in a relationship where the following occur: I choose not to answer Advance Care Planning discussion: Completed/Scanned Date of discussion: 08/23/25 Who was present: Patient Forms completed: Health Care Proxy Time spent: 16-45 minutes Actual minutes spent: 2 Const General: alert Nutritional Appearance: obese Orientation/consciousness: patient oriented x3 HENMT Head: Yes normocephalic Ears: hearing grossly normal bilaterally, external ears normal, TM's normal bilaterally and EAC's normal General nose exam: Normal external nose present and No nasal discharge present Mouth: Normal oral and palatal mucosa present and moist mucous membranes Eyes General: appearance normal, both eyes and all related structures Neck Neck: Yes full ROM, Yes no lymphadenopathy and Yes supple Thyroid: Thyroid normal and nontender Resp Auscultation: clear to auscultation bilaterally Cardio Other: S1-S2 present, regular rate and rhythm GI Other: Obese, soft, nontender, no mass palpated Auscultation: normal bowel sounds General: Yes no CVA tenderness Back/Spine/Pelvis Back: no CVA tenderness and No back tenderness Skin General skin exam: no rashes or lesions noted Neuro General: patient oriented x3, gait normal, moves all extremities, Normal light touch and pain sensation, no focal motor deficits and CN's II-XI intact bilaterally Extrem Other: Slight swelling and tenderness over right lateral epicondylar area General: Yes no pedal edema, Yes no calf tenderness and Yes normal gait Psych Appearance: grossly normal and well kempt Affect: normal affect Results Reviewed Results Reviewed: Name: Karen Borrero Age/Sex: 44/F : 1980 Unit#: [id number] Attend Dr: Jamee Frederick MD Re08/04/25 Status: DEP REF Location: [facility] Disch: SPEC : [id number] MONTRELL: 08/04/25 STATUS: COMP REQ : [id number] RECD: 08/04/[address]: Jamee Frederick MD COMP: 08/04/259 ENTERED: 08/04/[address]: ORDERED: Glu Fasting, Lipid Panel, Vitamin D 25-OH, TSH Rflx Test Result Flag Reference FBS 95 60-99 mg/dL Triglyceride 130 <150 mg/dL Desirable Triglyceride: less than 150 mg/dL Borderline High Triglyceride 150-199 mg/dL High Triglyceride: 200-499 mg/dL Very High Triglyceride: greater than or equal to 5OO mg/dL Cholesterol 148 <200 mg/dL Desirable Cholesterol: less than 200 mg/dL Borderline High Cholesterol: 200-239 mg/dL High Cholesterol: greater than 239 mg/dL LDL Calculated 80 <100 mg/dL Desirable LDL: less than 100 mg/dL Near Optimal/Above Optimal LDL: 110-129 mg/dL Borderline High LDL: 130-159 mg/dL High LDL: 160-189 mg/dL Very High LDL: greater than or equal to 190 mg/dL HDL 42 >40 mg/dL Desirable HDL: greater than 40 mg/dL Note: This HDL assay may give artificially low results in patients with liver disease. Vitamin D 25-OH 28.2 L >30 ng/mL Health Based Reference Values* < 20 ng/mL Deficient 20-30 ng/mL Insufficient > 30 ng/mL Sufficient *Anila LEWIS. N Engl J Med. 2007;357:266-280 There is no well-established upper level of normal vitamin D levels. Some laboratories use 50 ng/mL as an upper limit of normal. However, toxicity is patient-dependent and may occur at any level. Careful correlation with the patient's presentation is necessary and, if there is concern for vitamin D toxicity, treatment should be considered irrespective of the serum level. Care must be taken in interpreting Vitamin D results from different laboratories and methodologies. Published data demonstrated that results from patients undergoing hemodialysis may show a negative bias when tested with various automated 25-OH vitamin D assays when compared to LC-MS/MS. When testing samples from patients whose predominant form of Vitamin D is Vitamin D2, such as patients receiving Vitamin D2 supplementation, results that are subtherapeutic should be confirmed with another method such as LC-MS/MS. TSH 0.88 0.32-4.0 uIU/mL Coding Level of Care Code Est Pt Prev Care 40-64y(59386) Diagnoses Annual visit for general adult medical examination with abnormal findings Z00.01 Toro's thyroiditis E06.3 Dry skin L85.3 Lateral epicondylitis M77.10 Generalized anxiety disorder F41.1 Anxiety disorder type: generalized anxiety disorder Polyarthralgia M25.50 Vitamin D deficiency E55.9 Additional Codes Vital Signs *Quality* - Advance Care Planning discussion: Completed/Scanned ([id number]) Vital Signs *Quality* - Time spent: 16-45 minutes ([id number]) Assessment & Plan Assessment & Plan (1) Annual visit for general adult medical examination with abnormal findings: Code(s): Z00.01 - Encounter for general adult medical examination with abnormal findings Plan: Will check appropriate labs. Recommended dental visit every 6 months and regular eye exams, at least every 2 years. Take adequate calcium in diet and vitamin-D 3 at 2000 IU per cap once a day, in addition to weight-bearing exercises to help maintain good muscle tone and weight control. Instructed to do self-breast exam, and recommended to get yearly mammogram, referred to [facility] or her mammogram screening. Schedule another cervical cancer screening with [facility]. Patient does not want to get any vaccines. (2) Toro's thyroiditis: Code(s): E06.3 - Autoimmune thyroiditis Category: Medical Plan: not on any thyroid medication at present time , had a thyroid ultrasound in 2021 with no abnormality seen. Will continue to monitor thyroid levels (3) Dry skin: Code(s): L85.3 - Xerosis cutis Plan: Will check TSH and free T4 and thyroid peroxidase antibody (4) Lateral epicondylitis: Code(s): M77.10 - Lateral epicondylitis, unspecified elbow Category: Medical Plan: Prescription for meloxicam 50 mg to take 1 tablet once a day as needed for joint pain. Referred to orthopedics for further evaluation management (5) Anxiety disorder: Code(s): F41.9 - Anxiety disorder, unspecified Category: Medical Qualifiers: Anxiety disorder type: generalized anxiety disorder Qualified Code(s): F41.1 - Generalized anxiety disorder Plan: Takes lorazepam as needed, declines referral for counseling (6) Polyarthralgia: Code(s): M25.50 - Pain in unspecified joint Plan: History of elevated BROOKE in the past, will check CRP, sed rate, BROOKE levels (7) Vitamin D deficiency: Code(s): E55.9 - Vitamin D deficiency, unspecified Category: Medical Plan: Prescription sent for vitamin-D 3 63361 units per capsule to take once a week for the next 3 months. Once prescription finished , advised to continue taking [id number] vitamin-D 3 at 2000 units daily Orders: Orders CRP High Sensitivity 08/23/25 E06.3 - Autoimmune thyroiditis, L85.3 - Xerosis cutis Erythrocyte Sedimentation Rate 08/23/25 E06.3 - Autoimmune thyroiditis, L85.3 - Xerosis cutis Free T4 (Free Thyroxine) 08/23/25 E06.3 - Autoimmune thyroiditis, L85.3 - Xerosis cutis MM tomosynthesis screening BI 08/23/25 Z12.31 - Encounter for screening mammogram for malignant neoplasm of breast BROOKE Reflex Titer and Pattern 08/23/25 E06.3 - Autoimmune thyroiditis, L85.3 - Xerosis cutis Thyroid Stimulating Hormone 08/23/25 E06.3 - Autoimmune thyroiditis, L85.3 - Xerosis cutis Triiodothyronine T3 Free 08/23/25 E06.3 - Autoimmune thyroiditis, L85.3 - Xerosis cutis Referrals Orthopedics Referral M77.10 - Lateral epicondylitis, unspecified elbow Medications: New meloxicam 15 mg PO DAILY 30 tabs 0RF pain cholecalciferol (vitamin D3) 1,250 mcg PO QWEEK 13 caps 0RF 3 months
--- OUTSIDE RECORDS SUMMARY | 2025-08-23 18:14 | XMS_ITS | Clinical Summary ---
Author Organization [facility] Address [address] [place] [phone] Phone Care Team Providers Care Brim Rounder Name Role Phone Jamee Frederick MD Primary [...] that requires biopsy. Do the ultrasound at [facility]. Toro's thyroiditis 11/20/2023 Assessment & Plan [...] topic Medical Devices Not on file [place] [address] [place] [address] [place] [address] [place] [address] [place] [address] [place] [address] [place] [address] [place] [address] [employer] [facility] ACO [facility] ACO Care Teams Brim Rounder Relationship Specialty Start Date End Date Jamee Frederick MD [address] [place] [address] PCP - General Internal Medicine 12/23/22 Additional Source Comments The information contained in this document represents components of the legal health record. It is not the complete legal health record.[facility]
--- OUTSIDE RECORDS SUMMARY | 2025-08-23 18:14 | XMS_ITS | Clinical Summary ---
Author Organization [facility] Address [address] [place] [address] Phone Care Team Providers Care Corporate Technical Recruiter Name Role Phone Unavailable Primary Care Provider [...]
== END 2025-08-23 16:06 | disposition home or self-care (01) ==
LOC: HO.HMCC 15:17
PROVIDERS: PCP Internal Medicine; Visit Provider Internal Medicine
DX: Z00.01 Encounter for general adult medical examination with abnormal findings (principal); E06.3 Autoimmune thyroiditis; L85.3 Xerosis cutis; M77.10 Lateral epicondylitis, unspecified elbow; F41.1 Generalized anxiety disorder; M25.50 Pain in unspecified joint; E55.9 Vitamin D deficiency, unspecified; Z00.00 Encounter for general adult medical examination without abnormal findings

== ENCOUNTER → 2025-08-23 15:16 | Outpatient (BNVA) | payer OTHER, SELFPAY | PROVIDERS: PCP Internal Medicine; Visit Provider Internal Medicine | DX: Z00.01 Encounter for general adult medical examination with abnormal findings (principal); E06.3 Autoimmune thyroiditis; L85.3 Xerosis cutis; E66.9 Obesity, unspecified; F41.9 Anxiety disorder, unspecified; M77.10 Lateral epicondylitis, unspecified elbow; F41.1 Generalized anxiety disorder; M25.50 Pain in unspecified joint; E55.9 Vitamin D deficiency, unspecified; Z68.34 Body mass index [BMI] 34.0-34.9, adult | CPT/HCPCS: 99396; 99497 ==